=== PATIENT | female | born 1970 | race Caucasian/White ===

== ENCOUNTER 2022-09-26 13:16 | Emergency (ER) | payer BC, SELFPAY ==
[2022-09-26 13:25] VITALS: BP 135/82; PULSE 109; RESP 18; TEMP 36.8; O2SAT 97
--- NOTE | 2022-09-26 13:34 | XRR_ITS ---
PROCEDURE INFORMATION: Exam: XR Chest Exam date and time: 09/26/2022 1:46 PM Age: 51 years old Clinical indication: Cough TECHNIQUE: Imaging protocol: Radiologic exam of the chest. Views: 1 view. COMPARISON: CR XR chest 2V* [id number] 12/03/2016 2:31 PM FINDINGS: Lungs: Unremarkable. No consolidation. Pleural spaces: Unremarkable. No pleural effusion. No pneumothorax. Heart/Mediastinum: Unremarkable. No cardiomegaly. Bones/joints: Metallic hardware is seen in the cervical spine. This finding is stable XR/XR chest 1V portable [id number] IMPRESSION: 1. No acute findings. 2. Metallic hardware cervical spine
--- NOTE | 2022-09-26 13:46 | ECG_ITS ---
[facility] Test Date: 2022-09-26 Pat Name: Kailee Marcano Department: Room: Gender: Female Global President: : 1970 Requested By: Parish Bernal Order Number: [id number] Johnston MD: Hollis Mcelroy M.D. Measurements Intervals [place] Rate: 100 P: 60 UT: 158 QRS: 42 QRSD: 83 T: 59 QT: 353 QTc: 456 Interpretive Statements SINUS TACHYCARDIA LOW QRS VOLTAGE IN PRECORDIAL LEADS [QRS DEFLECTION < 1.0 mV IN CHEST LEADS] No previous ECG available for comparison Electronically Signed On 09-26-2022 19:43:43 BINDERY ASSISTANT by Hollis Mcelroy M.D. [id number]
--- NOTE | 2022-09-26 13:48 | W.ED.URI ---
HPI - URI/Sore Throat General: Chief Complaint: Fever Stated Complaint: Congestions, heaviness in chest Time Seen by Provider: 09/26/22 13:34 History of Present Illness: Patient is a 51-year-old female who comes to the ED with chest heaviness. Patient has been dealing with upper respiratory symptoms for approximately 1 month now. She has seen her PCP multiple times and was put on levofloxacin back in mid August. She did not improve and was then put on Augmentin back on the and has been taking that now for 5 days and has not gotten any relief. She feels some chest heaviness and chest discomfort for the past couple weeks comes and goes. She is also complaining of nasal drainage and congestion and a productive cough with thick yellow sputum. She has been around couple sick contacts 1 was a child with RSV and the other 1 was a child with influenza. Patient has a history of asthma and has been using her albuterol nebulizer breathing treatments as needed for the past month. Associated symptoms: Reports chest pain and nasal congestion; Deny abdominal pain, chills, diarrhea, fever(s), headache(s), nausea or vomiting Review of Systems Const: Reports: fatigue; Denies: fever(s) or chills Eyes: Denies: change in vision or eye discomfort ENMT: Reports: throat pain, nasal discharge and nasal congestion; Denies: odynophagia Card: Reports: chest pain; Denies: palpitations, edema, swelling of feet/ankles, dyspnea on exertion or orthopnea Resp: Reports: dyspnea and productive cough; Denies: non-productive cough GI: Denies: abdominal pain, nausea, vomiting, diarrhea, constipation or hematochezia : Denies: flank pain, dysuria or hematuria Musc: Denies: neck pain, back pain or extremity swelling Skin/Breast: Denies: rash or new lesions Neuro: Denies: headache(s), numbness in extremities or weakness in extremities PFSH ED PFSH: Medical History Asthma COVID-19 Social History Smoking and tobacco status: never smoked Alcohol intake: current Alcohol intake frequency: few times a month Lives independently: No Household members: spouse Housing: House Marital status: Number of children: 3 Number of grandchildren: 3 Highest education level completed: Associate Degree: Academic Program service: No Current occupational status: employed Current occupation: [employer] Current occupational exposures/hazards: Yes Pets and animals: No History of recent travel: No Sexually active: Yes Special iker needs: No Physical Exam Const: COMMON NORMALS: no acute distress, patient oriented x3 and alert GENERAL APPEARANCE: cooperative and comfortable HENMT: COMMON NORMALS: normocephalic HEAD & SCALP: normocephalic MOUTH: Normal oral and palatal mucosa present THROAT: posterior oropharynx normal and uvula midline Neck/C-Spine: COMMON NORMALS: supple GENERAL: Yes normal visual inspection Resp: COMMON NORMALS: normal respiratory effort, No retractions, No use of accessory muscles and clear to auscultation bilaterally AUSCULTATION: clear to auscultation bilaterally Cardio: COMMON NORMALS: regular rate, regular rhythm, S1 normal heart sound present, S2 normal heart sound present, No gallops present (Cardio), No clicks present (Cardio), No murmurs present (Cardio) and Peripheral pulses 2+ throughout RATE: regular rate RHYTHM: regular rhythm HEART SOUNDS: S1 normal heart sound present and S2 normal heart sound present PERIPHERAL PULSES: Peripheral pulses 2+ throughout GI: COMMON NORMALS: Normal to inspection, nondistended, normoactive bowel sounds present, Soft to palpation, non-tender and no masses PALPATION: Yes Soft to palpation : COMMON NORMALS: Yes no CVA tenderness BLADDER/KIDNEY EXAM: Yes no CVA tenderness Back/Pelvis: COMMON NORMALS: no CVA tenderness Extremity: COMMON NORMALS: normal to inspection Neuro: COMMON NORMALS: patient oriented x3 SENSORIUM/ORIENTATION: Yes alert GAIT: Yes Normal gait present Skin: GENERAL SKIN EXAM: dry skin Course Vital Signs: Vital signs: Vital Signs Temperature 98.2 F 09/26/22 13:25 Pulse Rate 90 09/26/22 16:10 Respiratory Rate 18 09/26/22 16:10 Blood Pressure 135/82 09/26/22 13:25 Pulse Oximetry 97 09/26/22 16:10 Oxygen Delivery Me thod 09/26/22 13:57 MDM - URI/Sore Throat Medical Decision Making Patient is a 51-year-old female who comes to the ED with chest heaviness. Patient has been dealing with upper respiratory symptoms for approximately 1 month now. She has seen her PCP multiple times and was put on levofloxacin back in mid August. She did not improve and was then put on Augmentin back on the and has been taking that now for 5 days and has not gotten any relief. She feels some chest heaviness and chest discomfort for the past couple weeks comes and goes. She is also complaining of nasal drainage and congestion and a productive cough with thick yellow sputum. She has been around couple sick contacts 1 was a child with RSV and the other 1 was a child with influenza. Labs were unremarkable. Troponin negative. EKG showed no acute findings. Chest x-ray showed no acute findings. Patient was given a DuoNeb breathing treatment and Solu-Medrol here in the ED. She was diagnosed with bronchitis and discharged home with a prescription for prednisone and told to continue taking her Augmentin. Follow-up with PCP in the next week for reevaluation. Return to ED precautions given. Patient understood and agreed with plan. Lab Data I reviewed the patient's lab results. 09/26/22 13:57 09/26/22 13:57 Radiology Impressions Chest X-Ray 09/26/22 13:34 IMPRESSION: 1. No acute findings. 2. Metallic hardware cervical spine Laboratory Results WBC 5.9 10^3/uL (4.0-10.0) 09/26/22 13:57 RBC 4.85 10^6/uL (4.1-5.3) 09/26/22 13:57 Hgb 14.6 g/dL (11.5-15.3) 09/26/22 13:57 Hct 43.8 % (37.0-47.0) 09/26/22 13:57 MCV 90.3 fl (81-99) 09/26/22 13:57 MCH 30.1 pg (28.0-34.0) 09/26/22 13:57 MCHC 33.3 g/dL (30.0-36.0) 09/26/22 13:57 RDW 12.7 % (12.1-15.1) 09/26/22 13:57 Plt Count 232 10^3/cmm (130-400) 09/26/22 13:57 MPV 11.0 fL (7.4-10.4) H 09/26/22 13:57 Neut % (Auto) 53.7 % 09/26/22 13:57 Lymph % (Auto) 36.3 % 09/26/22 13:57 [place] % (Auto) 6.3 % 09/26/22 13:57 Eos % (Auto) 2.5 % 09/26/22 13:57 Baso % (Auto) 1.0 % 09/26/22 13:57 Neut # (Auto) 3.16 10^3/uL (1.8-7.7) 09/26/22 13:57 Lymph # (Auto) 2.1 10^3/uL (0.8-4.8) 09/26/22 13:57 [place] # (Auto) 0.4 10^3/uL (0.2-0.9) 09/26/22 13:57 Eos # (Auto) 0.2 10^3/uL (0.0-0.8) 09/26/22 13:57 Baso # (Auto) 0.1 10^3/uL (0.0-0.1) 09/26/22 13:57 Nucleated RBC % (auto) 0 % 09/26/22 13:57 Nucleated RBCs # 0.0 /100WBC 09/26/22 13:57 Sodium 137 mmol/L (136-145) 09/26/22 13:57 Potassium 3.7 mmol/L (3.5-5.1) 09/26/22 13:57 Chloride 106 mmol/L (98-107) 09/26/22 13:57 Carbon Dioxide 20 mmol/L (22-29) L 09/26/22 13:57 Anion Gap 14.7 (5-19) 09/26/22 13:57 BUN 20 mg/dL (6-20) 09/26/22 13:57 Creatinine 0.9 mg/dL (0.5-0.9) 09/26/22 13:57 GFR Calculation 66.0 mL/min (90-130) L 09/26/22 13:57 Glucose 145 mg/dL (65-115) H 09/26/22 13:57 Calculated Osmolality 289 mOsm/kg (285-295) 09/26/22 13:57 Calcium 9.1 mg/dL (8.5-10.5) 09/26/22 13:57 Total Bilirubin 0.4 mg/dL (0.15-1.2) 09/26/22 13:57 AST 19 U/L (0-32) 09/26/22 13:57 ALT 25 U/L (0-33) 09/26/22 13:57 Alkaline Phosphatase 114 U/L (35-105) H 09/26/22 13:57 Troponin T Baseline 6 ng/L (0-10) 09/26/22 13:57 Troponin T 120 Minute 6.00 ng/L (0-10) 09/26/22 15:26 Delta Troponin T 0 ABS# (0-10) 09/26/22 15:26 Total Protein 7.0 g/dL (6.6-8.7) 09/26/22 13:57 Albumin 4.2 g/dL (3.5-5.2) 09/26/22 13:57 Globulin 2.8 g/dL (1.3-4.6) 09/26/22 13:57 Influenza Type A Ag negative (Negative) 09/26/22 13:57 Influenza Type B Ag negative (Negative) 09/26/22 13:57 SARS-CoV-2 Ag (Rapid) Cancelled 09/26/22 Unknown Group A Strep Rapid Negative (Negative) 09/26/22 13:57 EKG Data EKG 1: I personally reviewed and interpreted this EKG as follows: Computer Generated Interpretation: [address] [address] Electrocardiograph Report Signed Patient: Kailee Marcano Unit #: [id number] : 1970 Age/Sex: 51 / F ADM Date: 09/26/22 Loc: ER Room/Bed: Attending Dr: Ordering Provider/Ordering MD: Parish Bernal Date of Service: 09/26/22 Procedure(s): ECG 12 lead EKG Accession Number(s): [id number] Report Number: [id number] ? [facility] ? Test Date:? ? 2022-09-26 Pat Name: ? ? Kailee Marcano ? Department: ? Patient ID: ? [id number] ? Room: ? Gender: ? ? ? Female ? Manager Relocation: ? :? 1970 ? Requested By: Parish Bernal Order Number: [id number]? Reading : ? Hollis Mcelroy M.D. ? Measurements Intervals? [place]? Rate: ? 100? P:? 60 FL: ? 158? QRS:? 42 QRSD: ? 83 ? T:? 59 QT: ? 353? QTc:? 456? Interpretive Statements SINUS TACHYCARDIA LOW QRS VOLTAGE IN PRECORDIAL LEADS? [QRS DEFLECTION < 1.0 mV IN CHEST LEADS] No previous ECG available for comparison Electronically Signed On 09-26-2022 19:43:43 COMPUTER EQUIPMENT INSTALLER by Hollis Mcelroy M.D. [id number] Dictated By: Hollis Mcelroy MD Signed By: Hollis Mcelroy MD Signed Date/Time: 09/26/221945 DD/ 1401 Discharge Plan Discharge Patient Disposition: Home Clinical Impression: Bronchitis Condition: Stable Prescriptions: New prednisone 20 mg tablet 20 mg PO BID 7 Days Qty: 14 0RF benzonatate 100 mg capsule 100 mg PO Q6H PRN (Reason: cough) Qty: 20 0RF No Action Zyrtec 10 mg capsule 10 mg PO DAILY fluticasone propionate 50 mcg/actuation spray,suspension 1 spray INTRANASAL DAILY Rx Instructions: administer into each nostril topiramate [Topamax] 50 mg tablet 50 mg PO DAILY diphenhydramine HCl [Benadryl] 25 mg capsule 25 mg PO TID PRN ibuprofen [IBU] 800 mg tablet 800 mg PO Q6H albuterol sulfate 90 mcg/actuation aerosol powdr breath activated 2 inh INHALATION Q6H PRN cyclobenzaprine 10 mg tablet 10 mg PO TID PRN (Reason: muscle spasm) Qty: 20 0RF duloxetine 20 mg capsule,delayed release(DR/EC) 20 mg PO BID eszopiclone [Lunesta] 1 mg tablet PO doxycycline hyclate 100 mg tablet 100 mg PO BID 7 Days Qty: 14 0RF methylprednisolone [Medrol (Bobo)] 4 mg tablets,dose pack See Rx Instructions PO PER PKG DIR Qty: 21 0RF Rx Instructions: PO PER PKG DIR Discharge Orders: Discharge ED (Routine); Ordered 09/26/22 Ordered By: Parish Bernal Referrals: Ade Lin FNP [Primary Care Provider] - Discharge Diet: Regular Discharge Activity: Increase activity as tolerated Patient Instructions: Bronchitis (Acute) - Adult Activity Restrictions/Additional Instructions: Follow-up with medical provider as directed in the next 5 to 7 days for reevaluation. Continue taking Augmentin prescription until complete. Take medications as prescribed. Return to the ER or your medical provider if condition worsens. Please read and understand discharge instructions. Thank you for choosing [facility] for your healthcare needs today. Please realize this is an emergency room and that we are providing you with a medical screening exam and this may not be complete and all inclusive of all the testing and or work up that you may need to determine your ailment or severity of your illness. It is very important that you follow up as instructed or that you return to the Emergency Department should you have concerns or if your condition changes or worsens in any way. Coding Level of Care Code ED Stone Paver for Sona Fwd Exam Comprehensive
[2022-09-26] MEDS: ipratropium-albuterol 3 mL Neb 6 ML INHALATION (13:56)
[2022-09-26 13:57] VITALS: PULSE 98; RESP 18; O2SAT 96
[2022-09-26 14:15] LABS: Basophils # 0.1 10^3/uL (0.0-0.1); Eosinophils # 0.2 10^3/uL (0.0-0.8); Eosinophils % 2.5 %; Hematocrit 43.8 % (37.0-47.0); Hemoglobin 14.6 g/dL (11.5-15.3); Lymphocytes # 2.1 10^3/uL (0.8-4.8); Lymphocytes % 36.3 %; Mean Corpuscular HGB Conc 33.3 g/dL (30.0-36.0); Mean Corpuscular Hemoglobin 30.1 pg (28.0-34.0); Mean Corpuscular Volume 90.3 fl (81-99); Monocytes # 0.4 10^3/uL (0.2-0.9); Monocytes % 6.3 %; Neutrophils # 3.16 10^3/uL (1.8-7.7); Neutrophils % 53.7 %; Nucleated Red Blood Cells % 0 %; Platelet Count 232 10^3/cmm (130-400); Red Blood Count 4.85 10^6/uL (4.1-5.3); Red Cell Distribution Width 12.7 % (12.1-15.1); White Blood Count 5.9 10^3/uL (4.0-10.0)
[2022-09-26 14:27] LABS: Rapid Strep A Test Negative (Negative)
[2022-09-26 14:30] LABS: Alanine Aminotransferase 25 U/L (0-33); Albumin Level 4.2 g/dL (3.5-5.2); Alkaline Phosphatase 114 U/L (35-105); Anion Gap 14.7 (5-19); Aspartate Amino Transferase 19 U/L (0-32); Blood Urea Nitrogen 20 mg/dL (6-20); Calcium 9.1 mg/dL (8.5-10.5); Carbon Dioxide 20 mmol/L (22-29); Chloride 106 mmol/L (98-107); Globulin 2.8 g/dL (1.3-4.6); Glucose 145 mg/dL (65-115); Osmolality Calculated 289 mOsm/kg (285-295); Potassium 3.7 mmol/L (3.5-5.1); Sodium 137 mmol/L (136-145); Total Bilirubin 0.4 mg/dL (0.15-1.2)
[2022-09-26 15:34] LABS: Troponin(5th) Baseline 6 ng/L (0-10)
[2022-09-26 16:08] LABS: Influenza A by IFA negative (Negative); Influenza B by IFA negative (Negative)
[2022-09-26 16:10] VITALS: PULSE 90; RESP 18; O2SAT 97
[2022-09-26 16:27] LABS: Troponin 5 2HR Delta 0 ABS# (0-10)
== END 2022-09-26 16:10 | disposition home or self-care (01) ==
PROVIDERS: Emergency Provider Physician Assistant; PCP Registered Nurse
DX: J40 Bronchitis, not specified as acute or chronic (principal)
CPT/HCPCS: 36415; 71045; 80053; 84484; 85025; 87081; 87804; 87880; 93005; 94640; 96374; 99285; J2930

== ENCOUNTER → 2023-10-24 16:53 | Outpatient (BNVA) | payer BC, SELFPAY | PROVIDERS: PCP Registered Nurse; Visit Provider Nurse Practitioner | DX: R05.9 Cough, unspecified (principal); R09.89 Other specified symptoms and signs involving the circulatory and respiratory systems | CPT/HCPCS: 87400 ==

== ENCOUNTER → 2024-07-02 14:31 | Outpatient (BNVA) | payer BC, SELFPAY | PROVIDERS: PCP Registered Nurse; Visit Provider Podiatrist Foot & Ankle Surgery | DX: M79.671 Pain in right foot (principal); M79.672 Pain in left foot; Q66.71 Congenital pes cavus, right foot; Q66.72 Congenital pes cavus, left foot | CPT/HCPCS: 73630 ==

== ENCOUNTER 2024-11-04 15:17 | Emergency (ER) | payer BC, SELFPAY ==
[2024-11-04 15:52] VITALS: BP 131/86; PULSE 115; RESP 16; TEMP 36.8; O2SAT 97
--- NOTE | 2024-11-04 15:58 | ECG_ITS ---
[facility] Test Date: 2024-11-04 Pat Name: Kailee Marcano Department: Room: Gender: Female Senior Network Architect: : 1970 Requested By: Cleo Alvarez Order Number: [id number] Preston MD: Harsha Pastor M.D. Measurements Intervals [place] Rate: 109 P: 41 GA: 136 QRS: 24 QRSD: 80 T: 67 QT: 330 QTc: 444 Interpretive Statements SINUS TACHYCARDIA NONSPECIFIC T-WAVE ABNORMALITY ABNORMAL RHYTHM ECG Compared to ECG 09/26/2022 14:01:23 T-wave abnormality now present Electronically Signed On 11-06-2024 23:51:59 SENIOR QUANTITY SURVEYOR by Harsha Pastor M.D. [id number]
--- NOTE | 2024-11-04 16:43 | XRR_ITS ---
PROCEDURE INFORMATION: Exam: XR Chest Exam date and time: 11/04/2024 5:05 PM Age: 53 years old Clinical indication: Other: Pneumonia TECHNIQUE: Imaging protocol: Radiologic exam of the chest. Views: 1 view. COMPARISON: CR XR chest 1V portable [id number] 09/26/2022 1:46 PM FINDINGS: Lungs: Unremarkable. No consolidation. Pleural spaces: Unremarkable. No pleural effusion. No pneumothorax. Heart/Mediastinum: Unremarkable. No cardiomegaly. Bones/joints: Unremarkable. Similar partially imaged ACDF hardware. XR/XR chest 1V portable [id number] IMPRESSION: No acute findings.
--- NOTE | 2024-11-04 17:00 | W.ED.URI ---
HPI - URI/Sore Throat General: Chief Complaint: Upper Respiratory Infection Stated Complaint: congestion Time Seen by Provider: 11/04/24 16:25 Source: patient Mode of arrival: ambulatory Limitations: no limitations History of Present Illness: 53yo female presents with upper respiratory infection symptoms that have been ongoing for greater than a month. Patient reports that she is currently taking prednisone and using her nebulizer twice a day, but is not having any improvements. She reports that she does have a history of asthma and typically has difficulty when she does get respiratory infections. States she has needed Levaquin with her respiratory illnesses. Patient also reports that she has had pressure in her sinuses and in her ears. States that doxycycline and azithromycin do not work for her. Patient denies difficulty breathing, shortness of breath, vomiting, diarrhea, any other concern at this time. Associated symptoms: Reports nasal congestion and sinus pain; Deny abdominal pain, chills, chest pain, fever(s) or vomiting Related Data Home Medications Medication Instructions Recorded Confirmed albuterol sulfate 90 mcg/actuation 2 inh inhalation Q6H PRN 07/19/20 07/02/24 breath activated powder inhaler diphenhydramine HCl 25 mg capsule 25 mg PO TID PRN 07/19/20 07/02/24 (Benadryl) fluticasone propionate 50 1 spray intranasal DAILY 07/19/20 07/02/24 mcg/actuation nasal spray,suspension ibuprofen 800 mg tablet (IBU) 800 mg PO Q6H 07/19/20 07/02/24 topiramate 50 mg tablet (Topamax) 50 mg PO DAILY 07/19/20 07/02/24 duloxetine 20 mg capsule,delayed 20 mg PO BID 05/02/22 07/02/24 release eszopiclone 1 mg tablet (Lunesta) mg PO 05/02/22 07/02/24 levocetirizine 5 mg tablet 5 mg PO DAILY 10/18/23 07/02/24 Previous Rx's Medication Instructions Recorded cyclobenzaprine 10 mg tablet 10 mg PO TID PRN muscle spasm #20 07/27/21 tabs amoxicillin 875 mg-potassium 1 tab PO BID #14 tabs 11/04/24 clavulanate 125 mg tablet doxycycline hyclate 100 mg capsule 100 mg PO BID 14 days #28 caps 11/04/24 Allergies Allergy/AdvReac Type Severity Reaction Status Date / Time No Known Allergies Allergy Verified 11/04/24 15:55 Review of Systems Const: Denies: fever(s) or chills ENMT: Reports: nasal congestion and sinus pain Card: Reports: palpitations; Denies: chest pain Resp: Reports: non-productive cough and wheezing GI: Denies: abdominal pain or vomiting PFSH ED PFSH: Medical History COVID-19 Asthma Social History Smoking and tobacco/nicotine status: unknown if used tobacco/nicotine Alcohol intake: current Alcohol intake frequency: few times a month Substance/Drug Use: never Lives independently: No Household members: spouse Housing: House Marital status: Number of children: 3 Number of grandchildren: 3 Highest education level completed: Associate Degree: Academic Program service: No Current occupational status: employed Current occupation: [employer] Current occupational exposures/hazards: Yes Pets and animals: No Sexually active: Yes Special iker needs: No Physical Exam Const: COMMON NORMALS: no acute distress, patient oriented x3, healthy appearing and alert GENERAL APPEARANCE: cooperative OTHER: Patient is sitting upright on the stretcher no acute distress. She is able to give history with no difficulty. She is interactive with exam appropriately. No family is at bedside HENMT: COMMON NORMALS: normocephalic and TM's normal bilaterally HEAD & SCALP: normocephalic TYMPANIC MEMBRANE: TM's normal bilaterally MOUTH: lip normal Eye: GENERAL EYE: appearance normal, both eyes and all related structures Neck/C-Spine: COMMON NORMALS: full ROM Chest: CHEST: Yes Symmetrical chest wall rise Resp: COMMON NORMALS: normal respiratory effort and clear to auscultation bilaterally EFFORT & INSPECTION: Yes able to speak in complete sentences AUSCULTATION: clear to auscultation bilaterally Cardio: COMMON NORMALS: regular rate and regular rhythm RATE: regular rate RHYTHM: regular rhythm Extremity: COMMON NORMALS: full ROM Neuro: COMMON NORMALS: patient oriented x3 SENSORIUM/ORIENTATION: Yes alert Psych: COMMON NORMALS: cooperative Course Vital Signs: Vital signs: Vital Signs Temperature 98.2 F 11/04/24 15:52 Pulse Rate 115 H 01/12/25 15:52 Respiratory Rate 16 11/04/24 15:52 Blood Pressure 131/86 11/04/24 15:52 Pulse Oximetry 97 11/04/24 15:52 MDM - URI/Sore Throat Medical Decision Making 53yo female here with upper respiratory infection symptoms that have been ongoing for greater than a month. Patient reports that she is currently taking prednisone and using her nebulizer twice a day, but is not having any improvements. She reports that she does have a history of asthma and typically has difficulty when she does get respiratory infections. States she has needed Levaquin with her respiratory illnesses. Patient also reports that she has had pressure in her sinuses and in her ears. States that doxycycline and azithromycin do not work for her. Patient denies difficulty breathing, shortness of breath, vomiting, diarrhea, any other concern at this time. Patient is nontoxic in appearance. Tachycardia noted on triage vitals, repeat heart rate noted to be 104. EKG does show sinus tachycardia with a vent rate of 109. Independent review of chest x-ray shows no obvious infiltrate, awaiting radiology review. Discussed these findings with patient. Given that she has had her symptoms for greater than 1 month and is continuing to worsen, will proceed with antibiotic therapy. Augmentin and doxycycline prescribed, first dose provided while in the emergency department. Recommend patient continue with her prednisone taper as well as her albuterol and Spiriva. Advised to avoid respiratory irritants. Recommend she follow-up with primary care, call in the next couple of days with an update of symptoms and to discuss her recheck. Recommend returning to emergency department if any rapid worsening symptoms, difficulty breathing, shortness of breath, chest pain, and as needed. Patient states understanding and has no further questions or concerns at this time. Differential Diagnosis Likely upper respiratory infection, sinusitis, viral infection and bronchitis Medical Records I reviewed the patient's medical records. Lab Data Radiology Impressions Chest X-Ray 11/04/24 16:43 IMPRESSION: No acute findings. XR interpretation done by ED provider, pending radiology final review Discharge Plan Discharge Patient Disposition: Home Clinical Impression: Acute respiratory infection Asthma Qualifiers: Asthma severity: unspecified severity Asthma persistence: unspecified Asthma complication type: unspecified Qualified Code(s): J45.909 - Unspecified asthma, uncomplicated Condition: Stable Prescriptions: New amoxicillin-pot clavulanate 875-125 mg tablet 1 tab PO BID Qty: 14 0RF doxycycline hyclate 100 mg capsule 100 mg PO BID 14 Days Qty: 28 0RF Discontinued amoxicillin-pot clavulanate 875-125 mg tablet 1 tab PO BID 10 Days Qty: 20 0RF levofloxacin 750 mg tablet 750 mg PO DAILY 7 Days Qty: 7 0RF promethazine-DM 6.25-15 mg/5 mL syrup 5 ml PO Q4H PRN (Reason: cough) Qty: 118 0RF Rx Instructions: Do not exceed more than 30ml/24hour period (6 doses) No Action fluticasone propionate 50 mcg/actuation spray,suspension 1 spray INTRANASAL DAILY Rx Instructions: administer into each nostril topiramate [Topamax] 50 mg tablet 50 mg PO DAILY diphenhydramine HCl [Benadryl] 25 mg capsule 25 mg PO TID PRN ibuprofen [IBU] 800 mg tablet 800 mg PO Q6H albuterol sulfate 90 mcg/actuation aerosol powdr breath activated 2 inh INHALATION Q6H PRN cyclobenzaprine 10 mg tablet 10 mg PO TID PRN (Reason: muscle spasm) Qty: 20 0RF levocetirizine 5 mg tablet 5 mg PO DAILY duloxetine 20 mg capsule,delayed release(DR/EC) 20 mg PO BID eszopiclone [Lunesta] 1 mg tablet PO Discharge Orders: Discharge ED (Routine); Ordered 11/04/24 Ordered By: Fady Son Referrals: Ade Lin FNP [Primary Care Provider] - Discharge Diet: Usual diet Discharge Activity: Increase activity as tolerated Patient Instructions: Pneumonia (ED) Activity Restrictions/Additional Instructions: Augmentin and doxycycline have been sent to your pharmacy to begin treatment of your respiratory infection Continue with your home steroids, inhalers, and nebulizer Try to avoid any known respiratory irritants Follow-up with primary care, call in 2 to 3 days with an update of symptoms and to discuss to recheck Return to the emergency department if any rapid worsening symptoms, difficulty breathing, persistent shortness of breath, chest pain, and as needed. Stand Alone Forms: Work/School Release Coding Level of Care Code ED Paint Line Production Supervisor for Sona Albarado
[2024-11-04] MEDS: doxycycline 100 mg Tablet PO (19:04)
[2024-11-04] MEDS: amoxicillin-clav 875-125 mg Tablet 1 TAB PO (19:04)
[2024-11-04 19:05] VITALS: BP 123/97; PULSE 98; RESP 20; O2SAT 91
[2024-11-04 19:12] VITALS: BP 123/97; PULSE 96; O2SAT 92
== END 2024-11-04 19:13 | disposition home or self-care (01) ==
PROVIDERS: Emergency Provider Nurse Practitioner; PCP Registered Nurse
DX: J06.9 Acute upper respiratory infection, unspecified (principal); J45.909 Unspecified asthma, uncomplicated
CPT/HCPCS: 71045; 93005; 99284

== ENCOUNTER 2025-04-16 12:01 | Emergency (ER) | payer OTHER, SELFPAY ==
[2025-04-16 12:14] VITALS: BP 135/86; PULSE 98; RESP 18; TEMP 36.7; O2SAT 98
--- OUTSIDE RECORDS SUMMARY | 2025-04-16 12:21 | XMS_ITS | Encounter Summary ---
Author Organization [facility] Address [address] [place] [address] Care Team Providers Care Roll Threader Operator Name Role Phone Deion Cuevas Primary Care Provider Encounter Details Date Type Department Care Team (Late st Contact Info) Description 04/13/2025 Orders Only [facility] [place] [address] [address] Ade Lin, [facility] [address] [phone] Folliculitis (Primary Dx) Social History Tobacco Use Types Packs/Day Years Used Date Smoking Tobacco: Never Smokeless Tobacco: Never Alcohol Use Standard Drinks/Week Comments Yes 0 (1 standard drink = 0.6 oz pur e alcohol) Feeling Safe Answer Date Recorded Are you in a relationship wi th someone who hurts you emotionally and/or physically? 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
--- OUTSIDE RECORDS SUMMARY | 2025-04-16 12:21 | XMS_ITS | Encounter Summary ---
Author Organization [facility] Address [address] [place] [address] Care Team Providers Care Quality Improvement Specialist Name Role Phone Apoorva Garcia DO Primary Care Provider +1- [phone] Encounter Details Date Type Department Care Team (Latest Contact Info) Description 06/29/2005 Outpatient Historical [facility] Javier Orlando MD [address] [address] CERVICALGIA (Primary Dx) Social History Tobacco Use Types Packs/Day Years Used Date Smoking Tobacco: Never Assessed Comments Unknown Sex and Gender Information Value Date Recorded Sex Assigned at Not on file 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
--- OUTSIDE RECORDS SUMMARY | 2025-04-16 12:21 | XMS_ITS | Encounter Summary ---
Author Organization [facility] Address [address] [place] [address] Care Team Providers Care It Coordinator Name Role Phone Apoorva Garcia DO Primary Care Provider +1- [phone] Encounter Details Date Type Department Care Team (Latest Contact Info) Description 06/29/2005 Outpatient Historical [facility] [address] [place] [address] Javier Orlando MD [address] [address] SPONDYLOSIS NOS W MYELOP (Primary Dx) Social History Tobacco Use Types Packs/Day Years Used Date Smoking Tobacco: Never Assessed Comments Unknown Sex and Gender Information Value Date Recorded Sex Assigned at Not on file 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
--- OUTSIDE RECORDS SUMMARY | 2025-04-16 12:21 | XMS_ITS | Encounter Summary ---
Author Organization [facility] Address [address] [place] [address] Care Team Providers Care Exchange Architect Name Role Phone Apoorva Garcia DO Primary Care Provider +1- [phone] Encounter Details Date Type Department Care Team (Latest Contact Info) Description 01/03/2002 Outpatient Historical [facility] Rachid Ramires MD [address] [place] [address] NONINFEC GASTROENTERIT NEC (Primary Dx); CHEST PAIN NEC; ALLERGIC RHINITIS NEC; ESOPHAGEAL REFLUX Social History Tobacco Use Types Packs/Day Years Used Date Smoking Tobacco: Never Assessed Comments Unknown Sex and Gender Information Value Date Recorded Sex Assigned at Not on file Legal Sex Female 5:10 AM SECOND MATE Gender Identity Not on file Sexual Orientation Not on file documented as of this encounter Plan of Treatment Not on file documented as of this encounter Visit Diagnoses Diagnosis Other and unspecified noninfectious gastroenteritis and colitis(558.9)- Primary Other and unspecified noninfectious gastroenteritis and colitis Other chest pain Allergic rhinitis due to other allergen Esophageal reflux documented in this encounter Care Teams Exchange Architect Relationship Specialty Start Date End Date Apoorva Garcia DO [address] [place] [phone] PCP - General Family Practice 02/14/18 documented as of this encounter
--- OUTSIDE RECORDS SUMMARY | 2025-04-16 12:21 | XMS_ITS | Encounter Summary ---
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
--- OUTSIDE RECORDS SUMMARY | 2025-04-16 12:21 | XMS_ITS | Encounter Summary ---
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
--- OUTSIDE RECORDS SUMMARY | 2025-04-16 12:21 | XMS_ITS | Encounter Summary ---
Author Organization [facility] Address [address] [place] [address] Care Team Providers Care Shirt Folder Name Role Phone Apoorva Garcia DO Primary Care Provider +1- [phone] Encounter Details Date Type Department Care Team (Latest Contact Info) Description 07/27/2005 Outpatient Historical [facility] Pain Management Procedures [address] 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
--- OUTSIDE RECORDS SUMMARY | 2025-04-16 12:21 | XMS_ITS | Encounter Summary ---
Author Organization [facility] Address [address] [place] [address] Care Team Providers Care Journeyman Plumber Name Role Phone Apoorva Garcia DO Primary Care Provider +1- [phone] Encounter Details Date Type Department Care Team (Latest Contact Info) Description 10/20/1999 Outpatient Historical [facility] Camden Izquierdo NO ADDRESS ON FILE Nonspecific abnormal findings on radiological and other examination of other site of body (Primary Dx); Calculus of kidney Social History Tobacco Use Types Packs/Day Years Used Date Smoking Tobacco: Never Assessed Comments Unknown Sex and Gender Information Value Date Recorded Sex Assigned at Not on file 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
--- OUTSIDE RECORDS SUMMARY | 2025-04-16 12:21 | XMS_ITS | Encounter Summary ---
Author Organization [facility] Address [address] [place] [address] Care Team Providers Care Export Documents Clerk Name Role Phone Deion Cuevas Primary Care Provider [phone] Encounter Details Date Type Department Care Team (Late st Contact Info) Description 03/01/2025 Results Follow-Up [facility] [place] [address] [place] [address] Ade Lin, [facility] [address] [address] CBC WITH DIFFERENTIAL, HEMOGLOBIN A1C, LIPID PANEL Social History Tobacco Use Types Packs/Day Years [...] on file Legal Sex Female 5:54 AM PRINT DECORATOR Gender Identity Not on file Sexual Orientation Not on file documented as of this encounter Plan of Treatment Not on file documented as of this encounter Visit Diagnoses Not on filedocumented in this encounter Care Teams Export Documents Clerk Relationship Specialty Start Date End Date Deion Cuevas DO [address] [place] [address] PCP - General Family Practice 03/22/23 documented as of this encounter
--- OUTSIDE RECORDS SUMMARY | 2025-04-16 12:21 | XMS_ITS | Encounter Summary ---
Author Organization [facility] Address [address] [place] [address] Care Team Providers Care Marine Operations Coordinator Name Role Phone Apoorva Garcia DO Primary Care Provider +1- [phone] Encounter Details Date Type Department Care Team (Latest Contact Info) Description 08/03/2005 Outpatient Historical [facility] [address] [place] [address] 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 Gender Identity Not on file Sexual Orientation Not on file documented as of this encounter Plan of Treatment Not on file documented as of this encounter Procedures Procedure Name Priority Date/Time Associated Diagnosis Comments CBC WITHOUT DIFFERENTIAL Routine 08/03/2005 3:25 PM CDT BASIC METABOLIC PANEL Routine 08/03/2005 3:25 PM CDT documented in this encounter Results * (ABNORMAL) CBC WITHOUT DIFFERENTIAL (08/03/2005 3:25 PM CDT) WBC 10.9 4.5 - 11.0 K/ul INTERFACE SYSTEM RBC 4.90 4.20 - 5.40 Mil/ul INTERFACE SYSTEM HEMOGLOBIN 14.5 12.0 - 16.0 g/dL INTERFACE SYSTEM HEMATOCRIT 42.4 36.0 - 46.0 % INTERFACE SYSTEM MCV 86.5 84.0 - 103.0 Fl INTERFACE SYSTEM MCH 29.6 27.0 - 34.0 pg INTERFACE SYSTEM MCHC 34.2 30.0 - 35.0 g/dL INTERFACE SYSTEM RDW 13.4 11.0 - 14.5 % INTERFACE SYSTEM PLATELETS 307 140 - 440 K/ul INTERFACE SYSTEM MPV 10.8 8.9 - 12.8 Fl INTERFACE SYSTEM NEUTROPHILS 56.0 42.2 - 75.2 % INTERFACE SYSTEM LYMPHOCYTES 34.8 24.0 - 44.0 % INTERFACE SYSTEM MONOCYTES 8.0 2.0 - 10.0 % INTERFACE SYSTEM EOSINOPHILS 0.8 0.0 - 7.0 % INTERFACE SYSTEM BASOPHILS 0.4 0.0 - 1.0 % INTERFACE SYSTEM NEUTROPHIL ABSOLUTE 6.1 2.0 - 8.0 K/uL INTERFACE SYSTEM LYMPHOCYTE ABSOLUTE 3.8 1.2 - 4.0 K/ul INTERFACE SYSTEM MONOCYTE ABSOLUTE 0.9(H) 0.1 - 0.6 K/ul INTERFACE SYSTEM EOSINOPHIL ABSOLUTE 0.1 0.0 - 0.7 K/ul INTERFACE SYSTEM BASOPHILS ABSOLUTE 0.0 0.0 - 0.2 K/ul INTERFACE SYSTEM 08/03/2005 3:25 PM CDT us Javier Orlando MD HEMATOLOGY ORDERABLES Final Re sult INTERFACE SYSTEM Refer to clinic/hospital department * BASIC METABOLIC PANEL (08/03/2005 3:25 PM CDT) GLUCOSE 72 70 - 110 mg/dL INTERFACE SYSTEM BUN 12 7 - 17 mg/dL INTERFACE SYSTEM CREATININE 0.8 0.7 - 1.2 mg/dL INTERFACE SYSTEM SODIUM 140 136 - 145 mEq/L INTERFACE SYSTEM POTASSIUM 3.6 3.5 - 5.0 mEq/L INTERFACE SYSTEM CHLORIDE 106 95 - 110 mEq/L INTERFACE SYSTEM CO2 26 22 - 32 mmol/l INTERFACE SYSTEM ANION GAP 12 9 - 20 mEq/L INTERFACE SYSTEM OSMOLALITY, CALCULATED 285 275 - 295 mOsm/Kg INTERFACE SYSTEM CALCIUM 10.0 8.4 - 10.5 mg/dL INTERFACE SYSTEM 08/03/2005 3:25 PM CDT us Javier Orlando MD CHEMISTRY ORDERABLES Final Res ult INTERFACE SYSTEM Refer to clinic/hospital department documented in this encounter Visit Diagnoses Diagnosis Other specified pre-operative examination- Primary documented in this encounter Care Teams Marine Operations Coordinator Relationship Specialty Start Date End Date Apoorva Garcia DO [address] [place] [address] PCP - General Family Practice 02/14/18 documented as of this encounter
--- OUTSIDE RECORDS SUMMARY | 2025-04-16 12:21 | XMS_ITS | Encounter Summary ---
Author Organization [facility] Address [address] [place] [address] Care Team Providers Care Customer Data Technician Name Role Phone Apoorva Garcia DO Primary Care Provider [phone]- [phone] Encounter Details Date Type Department Care Team (Latest Contact Info) Description 12/23/1999 Outpatient Historical HIS [facility] Camden Izquierdo NO ADDRESS ON FILE Urinary calculus, unspecified (Primary Dx) Social History Tobacco Use Types Packs/Day Years Used Date Smoking Tobacco: Never Assessed Comments Unknown Sex and Gender Information Value Date Recorded Sex Assigned at Not on file 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
--- OUTSIDE RECORDS SUMMARY | 2025-04-16 12:21 | XMS_ITS | Encounter Summary ---
Author Organization [facility] Address [address] [place] [address] Care Team Providers Care Glove Machine Operator Name Role Phone Apoorva Garcia DO Primary Care Provider +1- [phone] Encounter Details Date Type Department Care Team (Latest Contact Info) Description 01/28/2000 Outpatient Historical [facility] Khalif Ferreira MD [address] [place] [address] Acute sinusitis, unspecified (Primary Dx); Unspecified sinusitis (chronic); Depressive disorder, not elsewhere classified; Benign silvia skin trunk Social History Tobacco Use Types Packs/Day Years Used Date Smoking Tobacco: Never Assessed Comments Unknown Sex and Gender Information Value Date Recorded Sex Assigned at Not on file Legal Sex Female 5:10 AM RHEUMATOLOGY NURSE Gender Identity Not on file Sexual Orientation Not on file documented as of this encounter Plan of Treatment Not on file documented as of this encounter Visit Diagnoses Diagnosis Acute sinusitis, unspecified- Primary Unspecified sinusitis (chronic) Depressive disorder, not elsewhere classified Benign silvia skin trunk Benign neoplasm of skin of trunk, except scrotum documented in this encounter Care Teams Glove Machine Operator Relationship Specialty Start Date End Date Apoorva Garcia DO [address] [place] [address] PCP - General Family Practice 02/14/18 documented as of this encounter
--- OUTSIDE RECORDS SUMMARY | 2025-04-16 12:21 | XMS_ITS | Encounter Summary ---
Author Organization [facility] Address [address] [place] [address] Care Team Providers Care Office Technologist Name Role Phone Apoorva Garcia DO Primary Care Provider +1- [phone] Encounter Details Date Type Department Care Team (Latest Contact Info) Description 08/14/2001 Outpatient Historical [facility] Rachid Ramires MD [address] [place], [place] [id number] Urinary tract infection, site not specified (Primary Dx); Migraine, unspecified, without mention of intractable migraine without mention of status migrainosus; Other malaise and fatigue; Unspecified disorder of skin and subcutaneous tissue Social History Tobacco Use Types Packs/Day Years Used Date Smoking Tobacco: Never Assessed Comments Unknown Sex and Gender Information Value Date Recorded Sex Assigned at Not on file 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 Gender Identity Not on file Sexual Orientation Not on file documented as of this encounter Plan of Treatment Not on file documented as of this encounter Visit Diagnoses Diagnosis Urinary tract infection, site not specified- Primary Migraine, unspecified, without mention of intractable migraine without mention of status migrainosus Other malaise and fatigue Unspecified disorder of skin and subcutaneous tissue documented in this encounter Care Teams Office Technologist Relationship Specialty Start Date End Date Apoorva Garcia DO [address] [place] [address] PCP - General Family Practice 02/14/18 documented as of this encounter
--- OUTSIDE RECORDS SUMMARY | 2025-04-16 12:21 | XMS_ITS | Encounter Summary ---
Author Organization [facility] Address [address] [place] [address] Care Team Providers Care Poultry Pathologist Name Role Phone Apoorva Garcia DO Primary Care Provider +1- [phone] Encounter Details Date Type Department Care Team (Latest Contact Info) Description 06/13/2000 Outpatient Historical [facility] Khalif Ferreira MD [address] [place] [address] Urinary tract infection, site not specified (Primary Dx); Bronchitis, not specified as acute or chronic Social History Tobacco Use Types Packs/Day Years Used Date Smoking Tobacco: Never Assessed Comments Unknown Sex and Gender Information Value Date Recorded Sex Assigned at Not on file Legal Sex Female 5:10 AM FINAL 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
--- OUTSIDE RECORDS SUMMARY | 2025-04-16 12:21 | XMS_ITS | Encounter Summary ---
Author Organization [facility] Address [address] [place] [address] Care Team Providers Care Stem Crusher Name Role Phone Apoorva Garcia DO Primary Care Provider +1- [phone] Encounter Details Date Type Department Care Team (Latest Contact Info) Description 07/27/2005 Outpatient Historical [facility] [address] [place] [address] Dmitri Perla BRACHIAL NEURITIS NOS (Primary Dx) Social History Tobacco Use Types Packs/Day Years Used Date Smoking Tobacco: Never Assessed Comments Unknown Sex and Gender Information Value Date Recorded Sex Assigned at Not on file 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
--- OUTSIDE RECORDS SUMMARY | 2025-04-16 12:21 | XMS_ITS | Encounter Summary ---
Author Organization [facility] Address [address] [place] [address] Care Team Providers Care Mold Sheet Cleaner Name Role Phone Apoorva Garcia DO Primary Care Provider +1- [phone] Encounter Details Date Type Department Care Team (Latest Contact Info) Description 07/13/2005 Outpatient Historical [facility] Pain Management Procedures [address] 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
--- OUTSIDE RECORDS SUMMARY | 2025-04-16 12:21 | XMS_ITS | Encounter Summary ---
Author Organization [facility] Address [address] [place] [address] Care Team Providers Care Speech And Hearing Director Name Role Phone Apoorva Garcia DO Primary Care Provider [phone] Encounter Details Date Type Department Care Team (Latest Contact Info) Description 07/01/2005 Outpatient Historical [facility] Neurosurgery[address] [place] [address] Javier Orlando MD [address] [place] [address] CERV DISC DIS W MYELOPAT (Primary Dx) Social History Tobacco Use Types Packs/Day Years Used Date Smoking Tobacco: Never Assessed Comments Unknown Sex and Gender Information Value Date Recorded Sex Assigned at Not on file Legal Sex Female 5:10 AM HR GENERALIST Gender Identity Not on file Sexual Orientation Not on file documented as of this encounter Plan of Treatment Not on file documented as of this encounter Visit Diagnoses Diagnosis Intervertebral cervical disc disorder with myelopathy, cervical region- Primary documented in this encounter Care Teams Speech And Hearing Director Relationship Specialty Start Date End Date Apoorva Garcia DO [address] [place] [address] PCP - General Family Practice 02/14/18 documented as of this encounter
--- OUTSIDE RECORDS SUMMARY | 2025-04-16 12:21 | XMS_ITS | Encounter Summary ---
Author Organization [facility] Address 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
--- OUTSIDE RECORDS SUMMARY | 2025-04-16 12:21 | XMS_ITS | Encounter Summary ---
Author Organization [facility] Address [address] [place] [address] Care Team Providers Care Packaging Line Operator Name Role Phone Apoorva Garcia DO Primary Care Provider [phone] Encounter Details Date Type Department Care Team (Latest Contact Info) Description 01/12/2000 Outpatient Historical [facility] Khalif Ferreira MD [address] [place] [address] Urinary tract infection, site not specified (Primary Dx); Urinary calculus, unspecified; Anemia, unspecified Social History Tobacco Use Types Packs/Day Years Used Date Smoking Tobacco: Never Assessed Comments Unknown Sex and Gender Information Value Date Recorded Sex Assigned at Not on file 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
--- OUTSIDE RECORDS SUMMARY | 2025-04-16 12:21 | XMS_ITS | Encounter Summary ---
Author Organization [facility] Address [address] [place] [address] Care Team Providers Care Senior Director Creative Services Name Role Phone Apoorva Garcia DO Primary Care Provider [phone]- [phone] Encounter Details Date Type Department Care Team (Latest Contact Info) Description 10/05/1999 Outpatient Historical [facility] Khalif Ferreira MD [address] [place] [address] Streptococcal sore throat (Primary Dx); Acute sinusitis, unspecified Social History Tobacco Use Types Packs/Day Years Used Date Smoking Tobacco: Never Assessed Comments Unknown Sex and Gender Information Value Date Recorded Sex Assigned at Not on file 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
--- OUTSIDE RECORDS SUMMARY | 2025-04-16 12:21 | XMS_ITS | Encounter Summary ---
Author Organization [facility] Address [address] 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
--- OUTSIDE RECORDS SUMMARY | 2025-04-16 12:21 | XMS_ITS | Encounter Summary ---
Author Organization [facility] Address [address] [place] [address] Care Team Providers Care Cephalometric Technician Name Role Phone Apoorva Garcia DO Primary Care Provider [phone] Encounter Details Date Type Department Care Team (Latest Contact Info) Description 11/01/2001 Outpatient Historical [facility] Rachid Ramires MD [address] [place], [place] [id number] BRONCHITIS NOS (Primary Dx) Social History Tobacco Use Types Packs/Day Years Used Date Smoking Tobacco: Never Assessed Comments Unknown Sex and Gender Information Value Date Recorded Sex Assigned at Not on file 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
--- OUTSIDE RECORDS SUMMARY | 2025-04-16 12:21 | XMS_ITS | Encounter Summary ---
Author Organization [facility] Address [address] [place] [address] Care Team Providers Care Flue Blower Name Role Phone Apoorva Garcia DO Primary Care Provider [phone] Encounter Details Date Type Department Care Team (Latest Contact Info) Description 03/04/2000 Outpatient Historical [facility] Khalif Ferreira MD [address] [place] [address] Allergic rhinitis, cause unspecified (Primary Dx); Depressive disorder, not elsewhere classified Social History Tobacco Use Types Packs/Day Years Used Date Smoking Tobacco: Never Assessed Comments Unknown Sex and Gender Information Value Date Recorded Sex Assigned at Not on file 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
--- OUTSIDE RECORDS SUMMARY | 2025-04-16 12:22 | XMS_ITS | Encounter Summary ---
Author Organization [facility] Address [address] [place] [address] Care Team Providers Care Process Helper Name Role Phone Apoorva Garcia DO Primary Care Provider [phone] Encounter Details Date Type Department Care Team (Latest Contact Info) Description 10/11/2003 Outpatient Historical [facility] Eliel Valles MD [address] [address] SUPERVIS OTHER NORMAL PREG (Primary Dx) Social History Tobacco Use Types Packs/Day Years Used Date Smoking Tobacco: Never Assessed Comments Unknown Sex and Gender Information Value Date Recorded Sex Assigned at Not on file 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
--- OUTSIDE RECORDS SUMMARY | 2025-04-16 12:22 | XMS_ITS | Clinical Summary ---
Author Organization [facility] Address [address] [place] [address] Care Team Providers Care Vp [employer] [place] Name Role Phone Deion Cuevas DO Primary Care Provider [phone] Allergies No known active allergies Medications fluticasone propionate (FLONASE) 50 mcg/spray [place], Suspension nasal inhalerIndication s:Seasonal allergic rhinitis, unspecified trigger Administer 2 Sprays in each nostril daily. 16 Gram 11 1 Active hyoscyamine 0.125 mg Tablet, Sublingual Place 0.125 mg under tongue every 4 hours as needed for Other (See Comment). For abdominal pain Active azelastine (ASTELIN) 137 mcg/actuation nasal spray 2 Active Flovent HFA 110 mcg/actuation HFA Aerosol Inhaler Take 1 Puff by inhalation 2 times daily. 2 Active ALBUTEROL INHALATION Take by inhalation. 8 Active ipratropium-albut Asiya (DUONEB) 0.5 mg-3 mg(2.5 mg base)/3 mL Solution for Nebulization Take 3 mL by inhalation. 8 Active diphenhydrAMINE (BENADRYL) 25 mg capsule Take by mouth every 6 hours as needed . 8 Active nebulizer Use as directed 8 Active albuterol (PROVENTIL,VENTOL IN) 2.5 mg /3 mL (0.083 %) Solution for Nebulization Take 3 mL (2.5 mg) by inhalation every 6 hours as needed for Shortness of Breath. 3 mL 2 3 Active cpap medical deviceIndications :TRUONG (obstructive sleep apnea) CPAP Auto with heated humidifier. Length of need:99 months; patient preference mask with headgear every 6 months; mask only every 3 months; 2 cushions per month; Tubing heated 1 every 3 months, water chamber 1 every 6 months, chin strap 1 every 6 months, filters disposable 2 per month, filters reusable 1 per 6 months. 1 Each 4 Active ibuprofen (MOTRIN) 800 mg tablet Take 1 Tablet (800 mg) by mouth every 6 hours as needed for Pain. 90 Tablet 2 4 Active albuterol sulfate HFA 90 mcg/actuation aerosol inhalerIndication s:Moderate persistent asthma with acute exacerbation Take 2 Puffs by inhalation every 6 hours as needed for Shortness of Breath. 8.5 Gram 2 4 Active HYDROcodone-aceta minophen (NORCO) 5-325 mg tabletIndications :Cervical spondylosis,Myofa scial pain,Chronic neck pain Take 1 Tablet by mouth every 8 hours as needed for Pain. 20 Tablet 4 Active DULoxetine (CYMBALTA) 60 mg Capsule, Delayed Release(E.C.)Marcie cations:Fibromyal estefanía,Chronic pain syndrome Take 1 capsule by mouth once daily 90 Capsule 5 Active budesonide-formot Asiya (SYMBICORT) 160-4.5 mcg/actuation HFA Aerosol InhalerIndication s:Moderate persistent asthma with acute exacerbation Take 2 Puffs by inhalation 2 times daily. 10.2 Gram 3 5 Active montelukast (SINGULAIR) 10 mg tabletIndications :Moderate persistent asthma with acute exacerbation,Jae rgic rhinitis, unspecified seasonality, unspecified trigger Take 1 Tablet (10 mg) by mouth daily at bedtime. 90 Tablet 3 5 Active topiramate (TOPAMAX) 50 mg tabletIndications :Intractable migraine without aura and without status migrainosus Take 1 Tablet (50 mg) by mouth 2 times daily. 60 Tablet 5 5 Active busPIRone (BUSPAR) 5 mg tabletIndications :MARCO (generalized anxiety disorder) Take 1-2 Tablets (5-10 mg) by mouth 2 times daily as needed for Anxiety. 90 Tablet 2 5 Active tretinoin (RETIN-A) 0.025 % Cream Apply to affected area daily. 20 Gram 1 5 Active eszopiclone (Lunesta) 3 mg TabletIndications :Primary insomnia Take 1 Tablet (3 mg) by mouth nightly as needed for Insomnia. 30 Tablet 2 5 Active cephALEXin (KEFLEX) 500 mg capsuleIndication s:Folliculitis Take 1 Capsule (500 mg) by mouth 3 times daily for 10 days. 30 Capsule 5 04/23/20 25 Active Active Problems Problem Noted Date Diagnosed Date Primary insomnia 01/28/2025 MARCO (generalized anxiety disorder) 01/28/2025 Moderate persistent asthma with acute exacerbati on 01/28/2025 Chronic radicular lumbar pain 03/26/2024 DJD (degenerative joint disease), lumbosacral Intractable migraine without aura and without status migrainosus 04/18/2019 Benign hypertension 04/18/2019 Seasonal allergic rhinitis 04/18/2019 Irritable bowel syndrome with diarrhea 9 Mixed hyperlipidemia 04/18/2019 Menorrhagia with irregular cycle 02/14/2018 Gastroesophageal reflux disease 02/14/2018 Encounters Date Type Department Care Team Description 04/13/2025 Orders Only [address] [phone] Ade Lin FNP Folliculitis (Primary Dx) 03/13/2025 External Device Data [facility] ABSTRACTION Provider, Abstract 03/12/2025 External Device Data [facility] ABSTRACTION Provider, Abstract 03/01/2025 Results Follow-Up [address] [address] Ade Lin FNP COMPREHENSIVE METABOLIC PANEL 03/01/2025 Results Follow-Up [address] [phone] Ade Lin FNP CBC WITH DIFFERENTIAL, HEMOGLOBIN A1C, LIPID PANEL 02/22/2025 7:15 AM CDT - 02/22/2025 11:59 PM CDT Hospital Encounter [facility] [place] [address] [place] [phone] Ade Lin FNP Discharge Disposition: Home or Self Care 02/19/[address] [phone] Ade Lin FNP Needs Appointment (For Mammo) 02/07/2025 Mobile Encounter [address] [phone] Ade Lin FNP 01/31/[address] [phone] Deion Cuevas DO Primary insomnia 01/29/2025 External Device Data STL ABSTRACTION Provider, Abstract 01/29/2025 External Device Data STL ABSTRACTION Provider, Abstract 01/29/2025 External Device Data STL ABSTRACTION Provider, Abstract 01/28/2025 3:20 PM CDT Office Visit [address] [phone] Ade Lin FNP Normal routine physical examination (Primary Dx); Breast cancer screening by mammogram; Moderate persistent asthma with acute exacerbation; Allergic rhinitis, unspecified seasonality, unspecified trigger; Intractable migraine without aura and without status migrainosus; MARCO (generalized anxiety disorder); Primary insomnia 01/22/[address] [phone] Ade Lin FNP Fibromyalgia; Chronic pain syndrome 01/22/[address] [address] Ade Lin FNP Fibromyalgia; Chronic pain syndrome from Last 3 Months Immunizations Immunization Administration Dates Next Due Influenza Seasonal Unspecified Formulation IM ,08/07/2019 Family History Medical History Relation Name Comments Esophageal Cancer Father Breast Cancer Maternal Aunt great older- unsure of age Melanoma Maternal Grandmother Hodgkin's lymphoma Mother non Lung Cancer Paternal Grandfather Cancer - Other Neg Hx Colon Cancer Neg Hx Ovarian Cancer Neg Hx Pancreatic Cancer Neg Hx Uterine or Endometrial Cance r, Not Including Cervical Neg Hx Relation Name Status Comments Father Maternal Aunt great Alive Maternal Grandmother Mother Paternal Grandfather Social History Tobacco Use Types Packs/Day Years Used Date Smoking Tobacco: Never Smokeless Tobacco: Never Tobacco Cessation:Counseling Given: Not Answered Alcohol Use Standard Drinks/Week Comments Yes 0 [...] on file Legal Sex Female 5:54 AM TIRE BAGGER Gender Identity Not on file Sexual Orientation Not on file Last Filed Vital Signs Vital Sign Reading Time Taken Comments Blood Pressure 128/68 01/28/2025 3:38 PM CDT Pulse 108 01/28/2025 3:38 PM CDT Temperature 36.7 C (98 F) 01/28/2025 3:38 PM CDT Respiratory Rate 18 01/28/2025 3:38 PM CDT Oxygen Saturation 96% 01/28/2025 3:38 PM CDT Inhaled Oxygen Concentration - - Weight 94.3 kg (208 lb) 01/28/2025 3:38 PM CDT Height 162.6 cm (5' 4 ) 01/28/2025 3:38 PM CDT Body Mass Index 35.7 01/28/2025 3:38 PM CDT Plan of Treatment Health Maintenance Due Date Last Done Comments HEPATITIS B VACCINES (1 of 3 - 19+ 3-dose series) 1989 DTAP/TDAP/TD VACCINES (1 - Tdap) 12/28/2005 12/28/19 06 FIT-DNA Q 3 years 2015 FIT/FOBT Q 1 year 2015 Flex Sig/CT Colonography Q 5 years 2015 ZOSTER VACCINE (1 of 2) 2020 PAP SMEAR 04/17/2021 04/17/2018, 03/25, 04/17/2018 CERVICAL CANCER SCREENING 04/17/2023 HPV/Cotest (21-29) 04/17/2023 04/17/2018, 04/17/2018 HPV/Cotest (30-65) 04/17/2023 04/17/2018, 04/17/2018 COVID-19 Vaccine ( - 2023-2 5 season) 2024 06/19/2021, 05/29/2021 BREAST CANCER SCREENING 01/12/2025 01/13/20 24, 06/29/2023, 12/03/2022 Pre-Diabetes and Diabetes Screening 02/23/2028 02/22/2025, 03/01/2024, 02/17/2023 COLORECTAL SCREENING 09/05/2029 09/05/2024, 09/05/2024, 07/28/2018, Additional history exists Colorectal Cancer Screening 09/05/2029 INFLUENZA VACCINE Completed 01/09/2025, , 07/30/2021, Additional history exists Preventative Visit- Commercial Completed 0 01/28/2025, 02/17/2023, 03/05/2022 Procedures Procedure Name Priority Date/Time Associated Diagnosis Comments COMPREHENSIVE METABOLIC PANEL Routine 02/22/2025 7:20 AM CDT Decreased renal function LIPID PANEL Routine 02/22/2025 7:20 AM CDT Mixed hyperlipidemia HEMOGLOBIN A1C Routine 02/22/2025 7:20 AM CDT Diabetes mellitus screening CBC WITH DIFFERENTIAL Routine 02/22/2025 7:20 AM CDT Fatigue, unspecified type Benign hypertension REFERENCE LAB PROCESSING FEE Routine 02/22/2025 7:20 AM CDT MARCO (generalized anxiety disorder) COLONOSCOPY REPORT 09/05/2024 1: 47 PM TIRE BAGGER MAMMO 3D RENETTA DIAGNOSTIC BILAT W OR WO CAD Routine 01/13/2024 1:45 PM CDT History of lump of right breast CERV/VAG CYTO SCREEN PAP W/HPV Routine 04/17/2018 12:13 PM CDT CERV/VAG CYTO SCREEN PAP W/O HPV Routine 04/17/2018 12:13 PM CDT from Last 3 Months or Most Recently Relevant to Health Maintenance Results * REFERENCE LAB PROCESSING FEE (02/22/2025 7:20 AM CDT) Pathologist [facility] REFERENCE LAB SENDOUT Sent to Ref Lab 02/22/2025 9:00 AM CDT [facility] Other, specify BLOOD SPECIMEN / Unknown Collection / Unknown 02/22/2025 7:20 AM CDT 02/22/2025 7:38 AM CDT us Ade Lin PULMONOLOGY TECHNICIAN CHEMISTRY ORDERABLES Final Re sult [facility] CLIA # [id number] [address] [place] [id number] * (ABNORMAL) CBC WITH DIFFERENTIAL (02/22/2025 7:20 AM CDT) Pathologist [facility] WBC 8.4 3.8 - 10.8 Thousand/u L [facility] RBC 5.04 3.80 - 5.10 Million/uL [facility] HEMOGLOBIN 14.9 11.7 - 15.5 g/dL [facility] HEMATOCRIT 46.8(H) 35.0 - 45.0 % [facility] MCV 92.9 80.0 - 100.0 fL [facility] MCH 29.6 27.0 - 33.0 pg [facility] MCHC 31.8(L) 32.0 - 36.0 g/dL [facility] Comment: For adults, a slight decrease in the calculated MCHC value (in the range of 30 to 32 g/dL) is most likely not clinically significant; however, it should be interpreted with caution in correlation with other red cell parameters and the patient's clinical condition. RDW 13.1 11.0 - 15.0 % [facility] PLATELETS 285 140 - 400 Thousand/u L [facility] MPV 11.5 7.5 - 12.5 fL [facility] NEUTROPHIL ABSOLUTE 4,561 1,500 - 7,800 cells/uL [facility] LYMPHOCYTE ABSOLUTE 2,940 850 - 3,900 cells/uL [facility] MONOCYTE ABSOLUTE 529 200 - 950 cells/uL [facility] EOSINOPHIL ABSOLUTE 252 15 - 500 cells/uL [facility] BASOPHILS ABSOLUTE 118 0 - 200 cells/uL [facility] NEUTROPHIL 54.3 % [facility] LYMPHOCYTES 35.0 % [facility] MONOCYTE 6.3 % [facility] EOSINOPHILS 3.0 % [facility] BASOPHILS 1.4 % [facility] Comment: Test Performed at: [facility] [address] [place] [address] Zac Lam MD Blood 02/22/2025 7:20 AM CDT 02/23/2025 4:11 AM CDT us Ade Lin PULMONOLOGY TECHNICIAN HEMATOLOGY ORDERABLES Final R esult [facility] [phone] [facility] [address] [place] [address] * HEMOGLOBIN A1C (02/22/2025 7:20 AM CDT) HEMOGLOBIN A1C 5.5 <5.7 % [facility] Comment: For the purpose of screening for the presence of diabetes: <5.7% Consistent with the absence of diabetes 5.7-6.4% Consistent with increased risk for diabetes (prediabetes) > or =6.5% Consistent with diabetes This assay result is consistent with a decreased risk of diabetes. Currently, no consensus exists regarding use of hemoglobin A1c for diagnosis of diabetes in children. According to [place] Diabetes Association (ADA) guidelines, hemoglobin A1c <7.0% represents optimal control in non- diabetic patients. Different metrics may apply to specific patient populations. Standards of Medical Care in Diabetes(ADA). ESTIMATED AVERAGE GLUCOSE (MG/DL) 111 mg/dL [facility] ESTIMATED AVERAGE GLUCOSE (MMOL/L) 6.2 mmol/L [facility] Comment: Test Performed at: [facility] [address] [place] [address] Zac Lam MD Blood 02/22/2025 7:20 AM CDT 02/23/2025 4:11 AM CDT us Ade Lin PULMONOLOGY TECHNICIAN CHEMISTRY ORDERABLES Final Re sult [facility] [phone] [facility] [address] [place] [address] * (ABNORMAL) LIPID PANEL (02/22/2025 7:20 AM CDT) CHOLESTEROL 187 <200 mg/dL [facility] HDL 52 > OR = 50 mg/dL [facility] TRIGLYCERIDE 172(H) <150 mg/dL [facility] LDL CALCULATED 106(H) mg/dL (calc) [facility] Comment: Reference range: <100 Desirable range <100 mg/dL for primary prevention; <70 mg/dL for patients with CHD or diabetic patients with > or = 2 CHD risk factors. LDL-C is now calculated using the Lucas-Nas calculation, which is a validated novel method providing better accuracy than the Friedewald equation in the estimation of LDL-C. Lucas SS et al. JOAQUIN. 2013;310(19): 1890-0872 (http://education.Yellow Pages.Octavian/faq/UYL119) CHOL/HDL RATIO 3.6 <5.0 (calc) [facility] NON-HDL CHOLESTEROL 135(H) <130 mg/dL (calc) [facility] Comment: For patients with diabetes plus 1 major ASCVD risk factor, treating to a non-HDL-C goal of <100 mg/dL (LDL-C of <70 mg/dL) is considered a therapeutic option. Test Performed at: [facility] [address] [address] Zac Lam MD Blood 02/22/2025 7:20 AM CDT 02/23/2025 4:11 AM CDT us Ade Lin PULMONOLOGY TECHNICIAN CHEMISTRY ORDERABLES Final Re sult [facility] [phone] [facility] [address] [address] * (ABNORMAL) COMPREHENSIVE METABOLIC PANEL (02/22/2025 7:20 AM CDT) GLUCOSE 88 65 - 99 mg/dL [facility] Comment: Fasting reference interval BUN 16 7 - 25 mg/dL [facility] CREATININE 1.05(H) 0.50 - 1.03 mg/dL [facility] GFR 63 > OR = 60 mL/min/1.7 3m2 [facility] BUN/CREAT RATIO 15 6 - 22 (calc) [facility] SODIUM 141 135 - 146 mmol/L [facility] POTASSIUM 4.0 3.5 - 5.3 mmol/L [facility] CHLORIDE 107 98 - 110 mmol/L [facility] CO2 22 20 - 32 mmol/L [facility] CALCIUM 9.5 8.6 - 10.4 mg/dL [facility] TOTAL PROTEIN 7.1 6.1 - 8.1 g/dL [facility] ALBUMIN 4.5 3.6 - 5.1 g/dL [facility] GLOBULIN 2.6 1.9 - 3.7 g/dL (calc) [facility] ALBUMIN/GLOBULIN RATIO 1.7 1.0 - 2.5 (calc) [facility] BILIRUBIN TOTAL 0.5 0.2 - 1.2 mg/dL [facility] ALKALINE PHOSPHATASE 122 37 - 153 U/L [facility] AST 23 10 - 35 U/L [facility] ALT 25 6 - 29 U/L [facility] Comment: FASTING: UNKNOWN Test Performed at: [facility] [address] [place] [address] Zac Lam MD Blood 02/22/2025 7:20 AM CDT 02/23/2025 9:08 AM CDT us Ade DELCID CHEMISTRY ORDERABLES Final Re sult [facility] [phone] [facility] [address] [place] [address] * COLONOSCOPY REPORT (09/05/2024 1:47 PM TIRE BAGGER) Narrative Procedure Note Lauri Mejia MD - 09/05/2024 1:47 PM CST [facility] GI Patient Name: Angel Richard Procedure Date: 09/05/2024 Date of : 1970 Admit Type: Outpatient Age: 53 Attending MD: Lauri Mejia , , Procedure: Colonoscopy Indications: Screening for colorectal malignant neoplasm Providers: Lauri Mejia Referring MD: BHAVIN Garcia Medicines: Monitored Anesthesia Care Complications: No immediate complications. Estimated blood loss: Minimal. Procedure: Pre-Anesthesia Assessment: - Prior to the procedure, a History and Physical was performed, and patient medications and allergies were reviewed. The patient's tolerance of previous anesthesia was also reviewed. The risks and benefits of the procedure and the sedation options and risks were discussed with the patient. All questions were answered, and informed consent was obtained. Prior Anticoagulants: The patient has taken no anticoagulant or antiplatelet agents. ASA Grade Assessment: II - A patient with mild systemic disease. After reviewing the risks and benefits, the patient was deemed in satisfactory condition to undergo the procedure. - [place] Protocol: - Pre-procedure Verification: Prior to the procedure, the patient's identity was verified by full name and date of . The patient's identity was verified on all pertinent medical records, including History and Physical. Also prior to the procedure, a History and Physical was performed, and patient medications, allergies and sensitivities were reviewed. The patient's tolerance of previous anesthesia was reviewed. The patient is competent. The risks and benefits of the procedure and the sedation options and risks were discussed with the patient. All questions were answered and informed consent was obtained. - Time-Out: Prior to the start of the procedure, the patient's identification, proposed procedure, accurate signed consent, correctly labeled images and records, and need for prophylactic antibiotics were verified by the physician and the nurse in the endoscopy suite. After I obtained informed consent, the scope was passed under direct vision. Throughout the procedure, the patient's blood pressure, pulse, and oxygen saturations were monitored continuously. The Colonoscope was introduced through the anus and advanced to the cecum, identified by appendiceal orifice and ileocecal valve. The colonoscopy was performed without difficulty. The patient tolerated the procedure well. The ileocecal valve, appendiceal orifice, and rectum were photographed. The entire colon was examined. Estimated Blood Loss: Estimated blood loss was minimal. Findings: The perianal and digital rectal examinations were normal. Pertinent negatives include normal sphincter tone, no palpable rectal lesions and no anal lesion or abnormality. A few small-mouthed diverticula were found in the sigmoid colon and in the descending colon. There was no evidence of diverticular bleeding. Non-bleeding internal hemorrhoids were found during retroflexion. The hemorrhoids were small. The entire examined colon appeared normal. Impression: - Mild diverticulosis in the sigmoid colon and in the descending colon. There was no evidence of diverticular bleeding. - Non-bleeding internal hemorrhoids. - The entire examined colon is normal. - No specimens collected. Recommendation: - Resume previous diet. - Continue present medications. - Repeat colonoscopy in 10 years for surveillance. - Patient has a contact number available for emergencies. The signs and symptoms of potential delayed complications were discussed with the patient. Return to normal activities tomorrow. Written discharge instructions were provided to the patient. - Return to primary care physician as previously scheduled. - The findings and recommendations were discussed with the patient's family. Lauri Mejia, 09/05/2024 1:46:59 PM Number of Addenda: 0 Note Initiated On: 09/05/2024 12:45 PM Scope Withdrawal Time 0 hours 6 minutes 8 seconds Scope In: 1:04:51 PM Scope Out: 1:12:58 PM [address] [place], [place] us Lauri Mejia MD GI PROCEDURE ORDERABL ES Final Result * MAMMO 3D RENETTA DIAGNOSTIC BILAT W OR WO CAD (01/13/2024 1:45 PM CDT) Anatomical Region Laterality Modality Breast Bilateral Mammography 01/13/2024 1:45 PM CDT Impressions 01/13/2024 5:30 PM CDT IMPRESSION: 1. No imaging evidence of malignancy. The patient was given verbal and written results and recommendations by the technologist. BI-RADS ASSESSMENT: 2 - Benign. RECOMMENDATION: Routine annual screening mammogram in 1 year. [id number] Narrative 01/13/2024 5:30 PM CDT EXAM: MAMMO 3D RENETTA DIAGNOSTIC BILAT W OR WO CAD, MAMMO BREAST US RIGHT LTD INDICATION: Patient presents for imaging followup of probably benign right breast cyst. She also reports a right breast lump. COMPARISON: Comparison was made to exams dating back to 2019. MAMMOGRAM TECHNIQUE: 2-D and 3D tomosynthesis diagnostic images were acquired and CAD was also used. BREAST COMPOSITION: The breasts are heterogeneously dense, which may obscure small masses. FINDINGS: RIGHT BREAST: There are no suspicious masses, calcifications or areas of distortion. LEFT BREAST: There are no suspicious masses, calcifications or areas of distortion. RIGHT BREAST ULTRASOUND: A limited right breast ultrasound was performed with real-time scanning. At 3:00, 7 cm from the nipple a benign cluster of cysts. This is in region of the palpable area of concern. At 4:00, 3 cm from the nipple a benign cluster of cysts is present. Benign cluster of cysts is present at 6:30, 3 cm. Procedure Note Wilian Gabriel MD - 01/13/2024 EXAM: MAMMO 3D RENETTA DIAGNOSTIC BILAT W OR WO CAD, MAMMO BREAST US RIGHT LTD INDICATION: Patient presents for imaging followup of probably benign right breast cyst. She also reports a right breast lump. COMPARISON: Comparison was made to exams dating back to 2019. MAMMOGRAM TECHNIQUE: 2-D and 3D tomosynthesis diagnostic images were acquired and CAD was also used. BREAST COMPOSITION: The breasts are heterogeneously dense, which may obscure small masses. FINDINGS: RIGHT BREAST: There are no suspicious masses, calcifications or areas of distortion. LEFT BREAST: There are no suspicious masses, calcifications or areas of distortion. RIGHT BREAST ULTRASOUND: A limited right breast ultrasound was performed with real-time scanning. At 3:00, 7 cm from the nipple a benign cluster of cysts. This is in region of the palpable area of concern. At 4:00, 3 cm from the nipple a benign cluster of cysts is present. Benign cluster of cysts is present at 6:30, 3 cm. IMPRESSION: 1. No imaging evidence of malignancy. The patient was given verbal and written results and recommendations by the technologist. BI-RADS ASSESSMENT: 2 - Benign. RECOMMENDATION: Routine annual screening mammogram in 1 year. [id number] us Ade Lin PULMONOLOGY TECHNICIAN MAMMO ORDERABLES Final Result * CERV/VAG CYTO SCREEN PAP W/HPV (04/17/2018 12:13 PM CDT) PAP INTERP See Separate Results 04/19/2018 1:10 PM CDT [facility] Genital SWAB OF ENDOCERVIX / Unknown Collection / Unknown 04/17/2018 12:13 PM CDT 04/18/2018 9:04 AM CDT us Roxana Rogers MD PATHOLOGY/CYTOLOGY ORD ERABLES Final Result [facility] Color Eight [facility] CLIA# [id number] [facility] [place] [address] [facility] CLIA # [id number] [address] [place] [address] [place] [address] * CERV/VAG CYTO SCREEN PAP W/O HPV (04/17/2018 12:13 PM CDT) CLINICAL INFORMATION HEALTHY 04/24/2018 1:50 PM CDT [facility] LAST MENSTRUAL PERIOD SEE COMMENT 04/24/2018 1:50 PM CDT [facility] Comment:Information not prov ided PREV PAP: SEE COMMENT 04/24/2018 1:50 PM CDT [facility] Comment:Information not prov ided PREV BX: SEE COMMENT 04/24/2018 1:50 PM CDT [facility] Comment:Information not prov ided SOURCE Endocervix 04/24/2018 1:50 PM CDT [facility] ADEQUACY: SEE COMMENT 04/24/2018 1:50 PM CDT [facility] Comment: Satisfactory for evaluation. Endocervical/transformation zone component present. Age and/or menstrual status not provided PAP INTERP SEE COMMENT 04/24/2018 1:50 PM CDT [facility] Comment:Negative for intraep ithelial lesion or malignancy. COMMENT SEE COMMENT 04/24/2018 1:50 PM CDT [facility] Comment: This Pap test has been evaluated with computer assisted technology. DRUGLESS PHYSICIAN: SEE COMMENT 2017 1:50 PM CDT [facility] Comment: TMK, CT(ASCP) CT screening location: [place] [address] [place] [address] EXPLANATORY NOTE SEE COMMENT 018 1:50 PM CDT [facility] LAB [facility] Comment: EXPLANATORY NOTE: The Pap is a screening test for cervical cancer. It is not a diagnostic test and is subject to false negative and false positive results. It is most reliable when a satisfactory sample, regularly obtained, is submitted with relevant clinical findings and history, and when the Pap result is evaluated along with historic and current clinical information. Genital SWAB OF ENDOCERVIX / Unknown Collection / Unknown 04/17/2018 12:13 PM CDT 04/19/2018 7:09 AM CDT Narrative [facility] - 04/24/2018 1:50 PM CDT Performing Organization Information: Site ID: Name: [facility] Address: [address] [place] [address] Director: Zac Lam us Roxana Rogers MD PATHOLOGY/CYTOLOGY ORD ERABLES Final Result [facility] from Last 3 Months or Most Recently Relevant to Health Maintenance Insurance [facility] [id number] Advance Directives For more information, please contact: [phone] * Full Code (Latest Code Status on File) Date Activated Date Inactivated Comments 09/05/2024 12:23 PM 09/05/2024 4:02 PM Care Teams Vp Ad Sales West Relationship Specialty Start Date End Date Deion Cuevas DO [address], [place] [address] PCP - General Family Practice 03/22/23
--- OUTSIDE RECORDS SUMMARY | 2025-04-16 12:22 | XMS_ITS | Encounter Summary ---
Author Organization [facility] Address [address] [place] [address] Care Team Providers Care Night Time Nanny Name Role Phone Apoorva Garcia DO Primary Care Provider +1 [phone] Encounter Details Date Type Department Care Team (Late st Contact Info) Description 02/07/2003 Emergency [facility] Emergency Department [address] [place] [address] Meenakshi Romero MD NO ADDRESS ON FILE ABDOMINAL PAIN EPIGASTRIC (Primary Dx) Social History Tobacco Use Types Packs/Day Years Used Date Smoking Tobacco: Never Assessed Comments Unknown Sex and Gender Information Value Date Recorded Sex Assigned at Not on file 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
--- OUTSIDE RECORDS SUMMARY | 2025-04-16 12:22 | XMS_ITS | Encounter Summary ---
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
--- OUTSIDE RECORDS SUMMARY | 2025-04-16 12:22 | XMS_ITS | Encounter Summary ---
Author Organization [facility] Address [address] [place] [address] Care Team Providers Care Forger Helper Name Role Phone Apoorva Garcia DO Primary Care Provider +1- [phone] Encounter Details Date Type Department Care Team (Latest Contact Info) Description 06/01/2006 Outpatient Historical [facility] [address] [place] [address] Javier Orlando MD [address] [address] Cervicalgia (Primary Dx); Pain in Limb Social History Tobacco Use Types Packs/Day Years Used Date Smoking Tobacco: Never Assessed Comments Unknown Sex and Gender Information Value Date Recorded Sex Assigned at Not on file 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
--- OUTSIDE RECORDS SUMMARY | 2025-04-16 12:22 | XMS_ITS | Encounter Summary ---
Author Organization [facility] Address [address] [place] [address] Care Team Providers Care Thermoplastic Technician Name Role Phone Apoorva Garcia DO Primary Care Provider +1- [phone] Encounter Details Date Type Department Care Team (Latest Contact Info) Description 04/17/2002 Outpatient Historical [facility] Khalif Ferreira MD [address] [place] [address] GENITAL WARTS NOS (Primary Dx); ALOPECIA NOS; GENERALIZED ANXIETY DIS Social History Tobacco Use Types Packs/Day Years Used Date Smoking Tobacco: Never Assessed Comments Unknown Sex and Gender Information Value Date Recorded Sex Assigned at Not on file 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
--- OUTSIDE RECORDS SUMMARY | 2025-04-16 12:22 | XMS_ITS | Encounter Summary ---
Author Organization [facility] Address [address] [place] [address] Care Team Providers Care Fish Hatchery Inspector Name Role Phone Apoorva Garcia DO Primary Care Provider +1- [phone] Encounter Details Date Type Department Care Team (Latest Contact Info) Description 02/19/2002 Outpatient Historical [facility] Khalif Ferreira MD [address] [place] [address] MIGRAINE NOS W/O MENTN INTRACTABLE (Primary Dx); ANXIETY STATE NOS Social History Tobacco Use Types Packs/Day Years Used Date Smoking Tobacco: Never Assessed Comments Unknown Sex and Gender Information Value Date Recorded Sex Assigned at Not on file 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
--- OUTSIDE RECORDS SUMMARY | 2025-04-16 12:22 | XMS_ITS | Encounter Summary ---
Author Organization [facility] Address [address] [place] [address] Care Team Providers Care Assistant Editor Name Role Phone Apoorva Garcia DO Primary Care Provider +1- [phone] Encounter Details Date Type Department Care Team (Latest Contact Info) Description 10/26/2005 Outpatient [facility] [address] [place] [address] Javier Orlando MD [address] [place] [address] CERVICALGIA (Primary Dx) Social History Tobacco Use Types Packs/Day Years Used Date Smoking Tobacco: Never Assessed Comments Unknown Sex and Gender Information Value Date Recorded Sex Assigned at Not on file 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
--- OUTSIDE RECORDS SUMMARY | 2025-04-16 12:22 | XMS_ITS | Encounter Summary ---
Author Organization [facility] Address [address] [place] [address] Care Team Providers Care Surgical Elastic Knitter Hand Frame Name Role Phone Apoorva Garcia DO Primary Care Provider +1- [phone] Encounter Details Date Type Department Care Team (Late st Contact Info) Description 12/11/2002 Outpatient Historical [facility] Eliel Valles MD [address] [address] Social History Tobacco Use Types Packs/Day Years Used Date Smoking Tobacco: Never Assessed Comments Unknown Sex and Gender Information Value Date Recorded Sex Assigned at Not on file 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
--- OUTSIDE RECORDS SUMMARY | 2025-04-16 12:22 | XMS_ITS | Encounter Summary ---
Author Organization [facility] Address [address] [place] [address] Care Team Providers Care Braiding Machine Operator Name Role Phone Apoorva Garcia DO Primary Care Provider +1 [phone] Encounter Details Date Type Department Care Team (Latest Contact Info) Description 12/24/2003 Outpatient Historical [facility] Eliel Valles MD [address] [address] ROUT POSTPART FOLLOW-UP (Primary Dx) Social History Tobacco Use Types Packs/Day Years Used Date Smoking Tobacco: Never Assessed Comments Unknown Sex and Gender Information Value Date Recorded Sex Assigned at Not on file 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
--- OUTSIDE RECORDS SUMMARY | 2025-04-16 12:22 | XMS_ITS | Encounter Summary ---
Author Organization [facility] Address [address] [place] [address] Care Team Providers Care Drywall Hanger Framer Name Role Phone Apoorva Garcia DO Primary Care Provider +1- [phone] Encounter Details Date Type Department Care Team (Latest Contact Info) Description 05/24/2006 Outpatient Historical [facility] [address] 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
--- OUTSIDE RECORDS SUMMARY | 2025-04-16 12:22 | XMS_ITS | Encounter Summary ---
Author Organization [facility] Address [address] [place] [address] Care Team Providers Care Plunger Machine Operator Name Role Phone Apoorva Garcia DO Primary Care Provider +1- [phone] Encounter Details Date Type Department Care Team (Latest Contact Info) Description 11/14/2003 Inpatient Historical [facility] Eliel Valles MD [address] [address] [address] DEG LACERAT-DEL (Primary Dx) Social History Tobacco Use Types Packs/Day Years Used Date Smoking Tobacco: Never Assessed Comments Unknown Sex and Gender Information Value Date Recorded Sex Assigned at Not on file 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
--- OUTSIDE RECORDS SUMMARY | 2025-04-16 12:22 | XMS_ITS | Encounter Summary ---
Author Organization [facility] Address [address] [place] [address] Care Team Providers Care Food And Beverage Analyst Name Role Phone Apoovra Garcia DO Primary Care Provider +1- [phone] Encounter Details Date Type Department Care Team (Latest Contact Info) Description 05/24/2006 Outpatient [facility] [address] [place] [address] Javier Orlando MD [address] [place] [address] Disturbance of Skin Sensation (Primary Dx) Social History Tobacco Use Types Packs/Day Years Used Date Smoking Tobacco: Never Assessed Comments Unknown Sex and Gender Information Value Date Recorded Sex Assigned at Not on file 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
--- OUTSIDE RECORDS SUMMARY | 2025-04-16 12:22 | XMS_ITS | Encounter Summary ---
Author Organization [facility] Address [address] [place] [address] Care Team Providers Care Breaster Name Role Phone Apoorva Garcia DO Primary Care Provider +1- [phone] Encounter Details Date Type Department Care Team (Latest Contact Info) Description 06/29/2005 Outpatient Historical [facility] Javier Orlando MD [address] [place] [address] [address] CERVICALGIA (Primary Dx) Social History Tobacco Use Types Packs/Day Years Used Date Smoking Tobacco: Never Assessed Comments Unknown Sex and Gender Information Value Date Recorded Sex Assigned at Not on file 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
--- OUTSIDE RECORDS SUMMARY | 2025-04-16 12:22 | XMS_ITS | Clinical Summary ---
Author Organization [facility] Address [address] [place] [address] Care Team Providers Care Epic Willow Analyst Name Role Phone Apoorva Garcia DO Primary Care Provider Allergies No known active allergies Medications ALBUTEROL INHALATION Take by inhalation. Active ipratropium-albut tiffani (DUONEB) 0.5 mg-3 mg(2.5 mg base)/3 mL Solution for Nebulization Take 3 mL by inhalation. Active diphenhydrAMINE (BENADRYL) 25 mg capsule Take by mouth every 6 hours as needed . Active nebulizer Use as directed Active dicyclomine (BENTYL) 10 mg capsuleIndication s:Irritable bowel syndrome with diarrhea Take 1 Capsule (10 mg) by mouth 4 times daily. 120 Capsule 3 9 Active fluticasone propionate (FLONASE) 50 mcg/spray Harvey, Suspension nasal inhalerIndication s:Seasonal allergic rhinitis, unspecified trigger Administer 2 Sprays in each nostril daily. 16 Gram 11 9 Active pseudoephedrine-g uaiFENesin (MUCINEX D) 60-600 mg Extended Release 12 hour tablet Take 1 Tablet by mouth 2 times daily. 30 Tablet 1 9 Active fexofenadine (BARBARA) 180 mg tablet Take 180 mg by mouth daily. Active cetirizine (ZyrTEC) 10 mg tablet Take 10 mg by mouth daily. Active albuterol (PROVENTIL,VENTOL IN) 2.5 mg /3 mL (0.083 %) Solution for NebulizationIndic ations:Moderate asthma with exacerbation, unspecified whether persistent,Acute bronchitis, unspecified organism Take 3 mL (2.5 mg) by inhalation every 6 hours as needed for Shortness of Breath. 1 box 3 mL 1 0 Active pantoprazole (Protonix) 40 mg Tablet, Delayed Release (E.C.)Indications :Gastroesophageal reflux disease without esophagitis Take 1 Tablet (40 mg) by mouth daily. 90 Tablet 4 0 Active buPROPion HCL (Wellbutrin SR) 150 mg Sustained Release 12 hour tabletIndications :Depression with anxiety Take 1 Tablet (150 mg) by mouth 2 times daily. 60 Tablet 6 0 Active predniSONE (DELTASONE) 10 mg tabletIndications :Acute bronchitis, unspecified organism,Allergic rhinitis, unspecified seasonality, unspecified trigger Take 3 tabs daily for 3 days, 2 tabs daily for 3 days then 1 tab daily for 3 days. 18 Tablet 0 Active busPIRone (BUSPAR) 10 mg tabletIndications :Depression with anxiety Take 1 Tablet (10 mg) by mouth 2 times daily as needed for Other (See Comment) (anxiety). 60 Tablet 2 0 Active topiramate (Topamax) 50 mg tabletIndications :Intractable migraine without aura and without status migrainosus Take 1 Tablet (50 mg) by mouth 2 times daily. 180 Tablet 1 Active montelukast (Singulair) 10 mg tabletIndications :Allergic rhinitis, unspecified seasonality, unspecified trigger Take 10 mg by mouth daily at bedtime. Active baclofen (LIORESAL) 10 mg tabletIndications :Chronic neck pain,Muscle spasms of neck Take 5-10 mg TID PRN for muscle spasms or neck pain 60 Tablet 1 1 Active ibuprofen (MOTRIN) 800 mg tabletIndications :Chronic neck pain Take 1 Tablet (800 mg) by mouth every 6 hours as needed for Pain, Mild. 90 Tablet 2 1 Active HYDROcodone-aceta minophen (NORCO) 5-325 mg tabletIndications :Chronic neck pain Take 1 Tablet by mouth every 8 hours as needed for Pain, Moderate. Max Daily Amount: 3 Tablets 15 Tablet 1 Active Active Problems Problem Noted Date Diagnosed Date Intractable migraine without aura and without status migrainosus 04/18/2019 Benign hypertension 04/18/2019 Mixed hyperlipidemia 04/18/2019 Irritable bowel syndrome with diarrhea 9 Seasonal allergic rhinitis 04/18/2019 Gastroesophageal reflux disease 02/14/2018 Menorrhagia with irregular cycle 02/14/2018 Immunizations Immunization Administration Dates Next Due Influenza Seasonal Unspecified Formulation IM Family History Medical History Relation Name Comments Colon Cancer Neg Hx Social History Tobacco Use Types Packs/Day Years Used Date Smoking Tobacco: Never Smokeless Tobacco: Never Alcohol Use Standard Drinks/Week Comments Yes 0 (1 standard drink = 0.6 oz pur e alcohol) occasion Comments No Sex and Gender Information Value Date Recorded Sex Assigned at Not on file 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 Gender Identity Not on file Sexual Orientation Not on file Last Filed Vital Signs Vital Sign Reading Time Taken Comments Blood Pressure 115/78 03/30/2021 3:49 PM CDT Pulse 107 03/30/2021 3:49 PM CDT Temperature 36.9 C (98.5 F) 03/30/2021 3:49 PM CDT Respiratory Rate 18 07/28/2018 9:29 AM CDT Oxygen Saturation 97% 03/30/2021 3:49 PM CDT Inhaled Oxygen Concentration - - Weight 80.6 kg (177 lb 12.8 oz) 03/30/2021 3:49 PM CDT Height 162.6 cm (5' 4 ) 03/30/2021 3:49 PM CDT Body Mass Index 30.52 03/30/2021 3:49 PM CDT Plan of Treatment Health Maintenance Due Date Last Done Comments Pre-Diabetes and Diabetes Screening 1970 DTAP/TDAP/TD VACCINES (1 - Tdap) 1989 HEPATITIS B VACCINES (1 of 3 - 19+ 3-dose series) 1989 FIT-DNA Q 3 years 2015 FIT/FOBT Q 1 year 2015 Flex Sig/CT Colonography Q 5 years 2015 ZOSTER VACCINE (1 of 2) 2020 PAP SMEAR 04/17/2021 04/17/2018, 04/17/2018 CERVICAL CANCER SCREENING 04/17/2023 HPV/Cotest (21-29) 04/17/2023 04/17/2018 HPV/Cotest (30-65) 04/17/2023 04/17/2018 COLORECTAL SCREENING 07/28/2023 07/28/2018, 07/28/20 Colorectal Cancer Screening 07/28/2023 INFLUENZA VACCINE (#1) 2024 08/07/2019 BREAST CANCER SCREENING 01/12/2025 01/13/20 24, 06/29/2023, 12/03/2022 Preventative Visit- Commercial Completed 01/28/2025 , 02/17/2023 Procedures Procedure Name Priority Date/Time Associated Diagnosis Comments COLONOSCOPY REPORT 07/28/2018 9: 09 AM CDT CERV/VAG CYTO SCREEN PAP W/HPV Routine 04/17/2018 12:13 PM CDT Screening for cervical cancer from Last 3 Months or Most Recently Relevant to Health Maintenance Results * COLONOSCOPY REPORT (07/28/2018 9:09 AM CDT) Narrative Procedure Note Arnaldo Weathers MD - 07/28/2018 9:08 AM CDT [facility] GI Patient Name: Kailee Grimm Procedure Date: 07/28/2018 Date of : 1970 Admit Type: Outpatient Age: 47 Attending MD: Arnaldo Weathers , Procedure: Colonoscopy Indications: Change in bowel habits Providers: Arnaldo Weathers Referring MD: BHAVIN Garcia Medicines: Midazolam 8 mg IV, Fentanyl 125 micrograms IV, (medications documented represent total dosages for multiple procedures) Complications: No immediate complications. Procedure: Pre-Anesthesia Assessment: - [place] Protocol: - Pre-procedure Verification: Prior to the procedure, the patient's identity was verified by full name and date of . The patient's identity was verified on all pertinent medical records, including History and Physical and pre-anesthesia assessment. Also prior to the procedure, a History and Physical was performed, and patient medications, allergies and sensitivities were reviewed. The patient's tolerance of previous anesthesia was reviewed. The risks and benefits of the procedure and the sedation options and risks were discussed with the patient. All questions were answered and informed consent was obtained. - Marking: The endoscopic procedure was visually marked on a patient wrist band delineating the patient name, proposed procedure and endoscopist's initials. - Time-Out: Prior to the start of [...] introduced through the anus and advanced to 3 cm into the ileum. The colonoscopy was performed without difficulty. The patient tolerated the procedure well. The quality of the bowel preparation was adequate. Estimated Blood Loss: Estimated blood loss was minimal. Findings: The digital rectal exam was normal. Pertinent negatives include normal sphincter tone. Non-bleeding internal hemorrhoids were found during retroflexion. The hemorrhoids were small. A few small-mouthed diverticula were found in the sigmoid colon and in the descending colon. A 3 mm polyp was found in the rectum. The polyp was sessile. The polyp was removed with a cold snare. Resection was complete, and retrieval was complete. The terminal ileum appeared normal. The ascending colon appeared normal. Biopsies for histology were taken with a cold forceps from the ascending colon for evaluation of microscopic colitis. Impression: - Non-bleeding internal hemorrhoids. - Diverticulosis in the sigmoid colon and in the descending colon. - One 3 mm polyp in the rectum, removed with a cold snare. Resected and retrieved. - The examined portion of the ileum was normal. - The ascending colon is normal. Biopsied. Recommendation: - Await pathology results. - Patient has a contact number available for emergencies. The signs and symptoms of potential delayed complications were discussed with the patient. Return to normal activities tomorrow. Written discharge instructions were provided to the patient. - Resume previous diet. - Continue present medications. - No aspirin, ibuprofen, naproxen, or other non-steroidal anti-inflammatory drugs for 2 weeks. - The findings and recommendations were discussed with the patient's family. - Return to primary care physician as previously scheduled. - Repeat colonoscopy in 5-10 years for surveillance. Arnaldo Weathers, 07/28/2018 9:08:37 AM Number of Addenda: 0 Note Initiated On: 07/28/2018 8:52 AM Scope Withdrawal Time 0 hours 6 minutes 59 seconds Scope In: 8:54:04 AM Scope Out: 9:04:06 AM [address] [place], [place] Arnaldo Weathers MD GI PROCEDURE ORDERABLES Final Re sult * CERV/VAG CYTO SCREEN PAP W/HPV (04/17/2018 12:13 PM CDT) PAP INTERP See Separate Results 04/19/2018 1:10 PM CDT [facility] [employer] [facility] Genital SWAB OF ENDOCERVIX / Unknown Collection / Unknown 04/17/2018 12:13 PM CDT 04/18/2018 9:04 AM CDT Roxana Rogers MD PATHOLOGY/CYTOLOGY ORD ERABLES Final Result [facility] CLIA# [id number] [address] [place] [address] from Last 3 Months or Most Recently Relevant to Health Maintenance Insurance WEB TPA [employer] SIGNATURE ADMIN Advance Directives For more information, please contact: [phone] * Full Code (Latest Code Status on File) Date Activated Date Inactivated Comments 07/28/2018 7:36 AM 07/28/2018 12:02 PM Care Teams Epic Willow Analyst Relationship Specialty Start Date End Date Apoorva Garcia DO [address] [place] [phone] PCP - General Family Practice 02/14/18
--- OUTSIDE RECORDS SUMMARY | 2025-04-16 12:22 | XMS_ITS | Encounter Summary ---
Author Organization [facility] Address [address] 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
--- OUTSIDE RECORDS SUMMARY | 2025-04-16 12:22 | XMS_ITS | Encounter Summary ---
Author Organization [facility] Address [address] [place] [address] Care Team Providers Care Svp Chief Marketing Officer Name Role Phone Apoorva Garcia DO Primary Care Provider [phone]- [phone] Encounter Details Date Type Department Care Team (Latest Contact Info) Description 06/01/2006 Outpatient [facility] [address] [place] [address] Javier Orlando MD [address] [place] [address] Cervicalgia (Primary Dx) Social History Tobacco Use Types Packs/Day Years Used Date Smoking Tobacco: Never Assessed Comments Unknown Sex and Gender Information Value Date Recorded Sex Assigned at Not on file 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
--- OUTSIDE RECORDS SUMMARY | 2025-04-16 12:23 | XMS_ITS | Encounter Summary ---
Author Organization [facility] Address [address] [place] [address] Care Team Providers Care Department Store General Manager Name Role Phone Apoorva Garcia DO Primary Care Provider [phone]- [phone] Encounter Details Date Type Department Care Team (Late st Contact Info) Description 10/12/2005 Outpatient Historical HIS CANCELLED ADMISSION Javier Orlando MD [address] [address] Social History Tobacco Use Types Packs/Day Years Used Date Smoking Tobacco: Never Assessed Comments Unknown Sex and Gender Information Value Date Recorded Sex Assigned at Not on file Legal Sex Female 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
--- OUTSIDE RECORDS SUMMARY | 2025-04-16 12:23 | XMS_ITS | Encounter Summary ---
Author Organization [facility] Address [address] [place] [address] Care Team Providers Care Racehorse Trainer Name Role Phone Apoorva Garcia DO Primary Care Provider +1- [phone] Encounter Details Date Type Department Care Team (Latest Contact Info) Description 09/14/2005 Outpatient [facility] [address] [place] [address] [place] [address] Javier Orlando MD [address] [place] [address] HEADACHE (Primary Dx) Social History Tobacco Use Types Packs/Day Years Used Date Smoking Tobacco: Never Assessed Comments Unknown Sex and Gender Information Value Date Recorded Sex Assigned at Not on file 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
--- OUTSIDE RECORDS SUMMARY | 2025-04-16 12:23 | XMS_ITS | Encounter Summary ---
Author Organization [facility] Address [address] [place] [address] Care Team Providers Care Furnace Stock Inspector Name Role Phone Apoorva Garcia DO Primary Care Provider +1- [phone] Encounter Details Date Type Department Care Team (Latest Contact Info) Description 08/17/2005 Outpatient [facility] [address] [place] [address] Javier Orlando MD [address] [place] [address] SURGERY FOLLOWUP NEC (Primary Dx) Social History Tobacco Use Types Packs/Day Years Used Date Smoking Tobacco: Never Assessed Comments Unknown Sex and Gender Information Value Date Recorded Sex Assigned at Not on file 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
--- OUTSIDE RECORDS SUMMARY | 2025-04-16 12:23 | XMS_ITS | Encounter Summary ---
Author Organization [facility] Address [address] [place] [address] Care Team Providers Care Utility Bill Complaints Investigator Name Role Phone Apoorva Garcia DO Primary Care Provider +1- [phone] Encounter Details Date Type Department Care Team (Latest Contact Info) Description 09/14/2005 Outpatient Historical [facility] [address] [place] [address] Javier Orlando MD [address] [address] C1-C4 FX-CLOSE/CORD INJ NOS (Primary Dx) Social History Tobacco Use Types Packs/Day Years Used Date Smoking Tobacco: Never Assessed Comments Unknown Sex and Gender Information Value Date Recorded Sex Assigned at Not on file Legal Sex Female 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
--- OUTSIDE RECORDS SUMMARY | 2025-04-16 12:23 | XMS_ITS | Patient Health Record ---
Author Organization [facility] Address [address] [place] [address] Care Team Providers Care Carpenter Railcar Name Role Phone Ade Marx Primary Care Provider Linda Lyles [phone] Allergies No Known Allergies Reason For Referral No Information Medications Medication SIG (Take, Route, Frequency, Duration) Notes Start Date End Date Status Flonase Allergy Relief 50 MCG/ACT 2 spray in each nostril Nasally Once a day Active Pantoprazole Sodium 40 MG 1 tablet Orall y Once a day Active Flovent HFA 110 MCG/ACT 1 puff Inhalatio n Twice a day for 30 days Not-Taking Azelastine HCl 137 MCG/SPRAY 1 puff in each nostril Nasally Twice a day for 30 day(s) 02/10/2022 Active Singulair 10 MG 1 tablet Orally Once a day for 90 days 01/27/2021 Active Albuterol Sulfate HFA 108 MCG/ACT 1 puff as needed Inhalation every 4 hrs Active Topamax 50 MG 1 tablet Orally Once a day for 30 day(s) Active Montelukast Sodium 10 MG Take 1 tablet b y mouth once daily for 90 Active Ibuprofen 800 MG 1 tablet with food o r milk as needed Orally prn back and neck pain Active Terbinafine HCl 250 MG 1 tablet Orally O nce a day Not-Taking Hyoscyamine Sulfate 0.125 MG 1 tablet on the tongue and allow to dissolve as needed Orally every 4 hrs Active Benadryl Allergy 25 MG 1 tablet Orally a t bedtine as needed Not-Taking HYDROcodone-Acetaminophen 5-325 MG 1 tablet as needed Orally every 8 hrs Active Albuterol Sulfate HFA 108 (90 Base) MCG/ACT 2 puff as needed Inhalation every 4 hrs for 30 days 04/28/2022 Active tiZANidine HCl 4 MG 1 tablet as needed Orally Three times a day Not-Taking ZyrTEC Allergy 10 MG 1 tablet Orally Onc e a day Active Lunesta 2 MG 1 tablet immediately before bedtime Orally Once a day Active Melatonin 1 MG 1 capsule at bedtime as needed Orally prn Not-Taking Immunizations Vaccine Route Administration Date Status Comme nts COVID-19 Vaccine (Intellisense) Dose #1 Unknown 05/29/2021 Ad ministered COVID-19 Vaccine (Intellisense) Dose #2 Unknown 06/19/2021 Ad ministered Influenza, seasonal, injecta ble (split), for 3 yrs and up Unknown 07/24/2019 Administered Influenza, seasonal, injecta ble, preservative free, 3 yrs and above Unknown 07/30/2020 Administered Social History Tobacco Use: Social History Observation Description Date Details (start date - stop date) Never Smoker NA - NA xTobacco Use/Smoking Question Answer Notes Are you a nonsmoker Alcohol Screen (Audit-C) Question Answer Notes Did you have a drink contain ing alcohol in the past year? Yes How often did you have a dri nk containing alcohol in the past year? Monthly or less (1 point) How many drinks did you have on a typical day when you were drinking in the past year? 1 or 2 drinks (0 point) How often did you have 6 or more drinks on one occasion in the past year? Never (0 point) Points 1 Interpretation Negative PHQ-9 Question Answer Notes Little interest or pleasure in doing things Not at all Feeling down, depressed, or hopeless Not at all Trouble falling or staying asleep, or sleeping t oo much Several days Feeling tired or having little energy Not at all Poor appetite or overeating Not at all Feeling bad about yourself, or that you are a failure, or have let yourself or your family down Not at all Trouble concentrating on thi ngs, such as reading the newspaper or watching television Not at all Moving or speaking so slowly that other people could have noticed. Or the opposite ? being so fidgety or restless that you have been moving around a lot more than usual Not at all Thoughts that you would be b za off , or of hurting yourself in some way Not at all Total Score 1 Interpretation Minimal Depression Problems Problem Type SNOMED Code ICD Code Onset Dates Problem Status W/U Status Risk Notes Problem Hypersomnia (85540906) Hypersomnia (G47.10) Active confirmed Problem 545513630 Gastroesophageal reflux disease, esophagitis presence not specified (K21.9) Active confirmed Problem Mild intermittent asthma (941159657) Mild intermittent asthma in adult without complication (J45.20) Active confirmed Problem Uncomplicated mild persistent asthma (801552635) Mild persistent asthma without complication (J45.30) Active confirmed Problem Seasonal allergy (660771495) Seasonal allergies (J30.2) Active confirmed Plan Of Treatment Pending Test Test Name Order Date Sleep study > 3 [id number] 01/27/2021 Sleep Study with [id number] 01/27/2021 Insurance Providers Payer Name Payer Address Payer Phone Subscriber Number Group Number Insured Name Patient Relationship to Insured Coverage Start Date Coverage End Date [place] [address] [place] [address] [id number] ANGEL Marcano Self - patient is the insured Medical (General) History Medical History History ICD Code Problem:Irregular periods Resolved Problem:Kidney stone, Problem:Migraine (disorder) , Status :: Active Problem:Mitral valve prolapse (disorder) , Status :: Active Hx of pneumonia Hiatal Hernia Degenerative disc disease asthma Bronchitis anxiety GERD sleep apnea Surgical History Surgery Date(Month/Year) cervical discectomy c5-c6 and 6-7 cholecystectomy 08/2019 left middle finger tendon repair Dilation and Curettage denies recent Hospitalization History Reason Date(Month/Year) denies recent pneumonia/lung infection 2015 See above
--- OUTSIDE RECORDS SUMMARY | 2025-04-16 12:23 | XMS_ITS | Encounter Summary ---
Author Organization [facility] Address [address] [place] [address] Care Team Providers Care Safety Engineer Name Role Phone Apoorva Garcia DO Primary Care Provider [phone] Encounter Details Date Type Department Care Team (Latest Contact Info) Description 08/17/2005 Outpatient Historical [facility] [address] 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 Gender Identity Not on file Sexual Orientation Not on file documented as of this encounter Plan of Treatment Not on file documented as of this encounter Visit Diagnoses Diagnosis Closed fracture of fifth cervical vertebra without mention of spinal cord injury (CMS/HCC)- Primary Closed fracture of fifth cervical vertebra without mention of spinal cord injury Closed fracture of sixth cervical vertebra without mention of spinal cord injury (CMS/HCC) Closed fracture of sixth cervical vertebra without mention of spinal cord injury documented in this encounter Care Teams Safety Engineer Relationship Specialty Start Date End Date Apoorva Garcia DO [address] [place] [id number] PCP - General Family Practice 02/14/18 documented as of this encounter
--- OUTSIDE RECORDS SUMMARY | 2025-04-16 12:23 | XMS_ITS | Encounter Summary ---
Author Organization [facility] Address [address] [place] [address] Care Team Providers Care Statement Clerks Manager Name Role Phone Apoorva Garcia DO Primary Care Provider [phone] Encounter Details Date Type Department Care Team (Late st Contact Info) Description 08/06/2005 Inpatient Historical [facility] Javier Orlando MD [address] [place] [address] CERV SPONDYL W MYELOPATH (Primary Dx) Social History Tobacco Use Types Packs/Day Years Used Date Smoking Tobacco: Never Assessed Comments Unknown Sex and Gender Information Value Date Recorded Sex Assigned at Not on file Legal Sex Female 5:10 AM VALVE INSPECTOR Gender Identity Not on file Sexual Orientation Not on file documented as of this encounter Plan of Treatment Not on file documented as of this encounter Procedures Procedure Name Priority Date/Time Associated Diagnosis Comments POC GLUCOSE Routine 08/06/2005 2:56 PM CDT documented in this encounter Results * (ABNORMAL) POC GLUCOSE (08/06/2005 2:56 PM CDT) GLUCOSE POC 107(H) 60 - 100 mg/dL INTERFACE SYSTEM 08/06/2005 2:56 PM CDT us Javier Orlando MD POINT OF CARE TESTING Final Re sult INTERFACE SYSTEM Refer to clinic/hospital department documented in this encounter Visit Diagnoses Diagnosis Cervical spondylosis with myelopathy- Primary documented in this encounter Care Teams Statement Clerks Manager Relationship Specialty Start Date End Date Apoorva Garcia DO [address] [place] [address] PCP - General Family Practice 02/14/18 documented as of this encounter
--- NOTE | 2025-04-16 12:34 | CT_ITS ---
WS: [id number] CT HEAD NONCONTRAST HISTORY: dizziness TECHNIQUE: Contiguous axial imaging performed through the brain. Bone and soft tissue windows. Sagittal and coronal reformats reviewed. All CT scans at [facility] use at least one of these dose optimization techniques: automated exposure control; mA and/or kV adjustment per patient size (includes targeted exams where dose is matched to clinical indication); or iterative reconstruction. DLP: 1015.24 mGy.cm COMPARISON: None available. No acute intracranial hemorrhage, midline shift or mass effect. No significant cerebral or cerebellar atrophy. Small lacunar infarcts versus perivascular spaces inferior LEFT basal ganglia. Favor perivascular spaces. No large territory infarct. Ventricles: Normal size with no hydrocephalus. No inferior displacement of the cerebellar tonsils. Paranasal sinuses: As visualized are clear. Mastoid air cells: Well pneumatized. Calvarium and scalp: Skull is intact with no soft tissue edema or swelling. CT/CT head wo con* [id number] IMPRESSION: 1. No acute intracranial hemorrhage or edema. 2. Normal ventricles. 3. Perivascular spaces LEFT basal ganglia.
--- NOTE | 2025-04-16 12:34 | XR_ITS ---
WS: [id number] Exam: XR chest 1V portable [id number] Date/Time of Exam: 04/16/2025 12:54 PM Reason For Exam: dizziness Comparison 11/04/2024. Lungs are clear and fully inflated. Normal cardiomediastinal silhouette. No pleural effusions. Fusion hardware in the lower C-spine. XR/XR chest 1V portable [id number] IMPRESSION: 1. Negative chest.
--- NOTE | 2025-04-16 12:36 | ECG_ITS ---
[facility] Test Date: 2025-04-16 Pat Name: Kailee Marcano Department: Room: Gender: Female Hardware Trainer: : 1970 Requested By: Cleo Alvarez Order Number: [id number] Preston MD: Hollis Mcelroy M.D. Measurements Intervals [place] Rate: 82 P: 44 OR: 181 QRS: 38 QRSD: 84 T: 54 QT: 395 QTc: 462 Interpretive Statements SINUS RHYTHM Compared to ECG 11/04/2024 15:58:08 Sinus tachycardia no longer present T-wave abnormality no longer present Electronically Signed On 04-16-2025 17:10:31 CDT by Hollis Mcelroy M.D. [email or web address]
--- NOTE | 2025-04-16 12:38 | W.ED.WEAKNES ---
HPI - Weakness General: Chief complaint: Weakness Stated complaint: trouble walking Time Seen by Provider: 04/16/25 12:30 Source: patient Mode of arrival: ambulatory Limitations: no limitations History of Present Illness: 54-year-old female states that she woke up yesterday morning with severe dizziness. States she has had ongoing dizziness since then her last known normal was the night before over 24 hours. States that her vertigo and dizziness is much worse when she stands or tries to ambulate states has been a hard time ambulating. No history of vertigo in the past denies any other symptoms at this time Associated symptoms: Denies chest pain, chills, fever(s), headache(s), nausea or vomiting Review of Systems Const: Denies: fever(s), chills, body aches or change in appetite ENMT: Denies: throat pain or dental pain Card: Denies: chest pain Resp: Denies: dyspnea GI: Denies: abdominal pain, nausea, vomiting or diarrhea Musc: Denies: neck pain or back pain Skin/Breast: Denies: rash Neuro: Reports: dizziness and vertigo; Denies: headache(s) PFSH ED PFSH: Medical History COVID-19 Asthma Social History Smoking and tobacco/nicotine status: unknown if used tobacco/nicotine Alcohol intake: current Alcohol intake frequency: few times a month Substance/Drug Use: never Lives independently: No Household members: spouse Housing: House Marital status: Number of children: 3 Number of grandchildren: 3 Highest education level completed: Associate Degree: Academic Program service: No Current occupational status: employed Current occupation: [employer] Current occupational exposures/hazards: Yes Pets and animals: No Sexually active: Yes Special iker needs: No Physical Exam Const: COMMON NORMALS: patient oriented x3 HENMT: COMMON NORMALS: normocephalic and atraumatic HEAD & SCALP: normocephalic and atraumatic Eye: COMMON NORMALS: Equal, round and reactive pupils present and EOMs intact bilaterally PUPIL: Yes Equal, round and reactive pupils present Neck/C-Spine: COMMON NORMALS: full ROM and supple Chest: COMMONS NORMALS: normal inspection of the chest and normal palpation of entire chest wall Resp: COMMON NORMALS: normal respiratory effort, No retractions, No use of accessory muscles and clear to auscultation bilaterally AUSCULTATION: clear to auscultation bilaterally Cardio: COMMON NORMALS: regular rate, regular rhythm and No murmurs present (Cardio) RATE: regular rate RHYTHM: regular rhythm GI: COMMON NORMALS: Normal to inspection, nondistended, normoactive bowel sounds present, Soft to palpation, non-tender and no masses PALPATION: Yes Soft to palpation Extremity: COMMON NORMALS: normal to inspection and full ROM Neuro: COMMON NORMALS: patient oriented x3, moves all extremities and no focal motor deficits CRANIAL NERVES: Yes CN normal except as noted SPEECH: speech normal MOTOR EXAM: 5/5 motor strength present throughout Psych: COMMON NORMALS: mental status grossly normal, Normal thought process present and cooperative THOUGHT PROCESS: Normal thought process present Skin: COMMON NORMALS: no rashes or lesions noted and no wounds GENERAL SKIN EXAM: no rashes or lesions noted Course Vital Signs: Vital signs: Vital Signs Temperature 98.1 F 04/16/25 12:14 Pulse Rate 83 04/16/25 14:00 Respiratory Rate 18 04/16/25 12:14 Blood Pressure 132/88 04/16/25 14:00 Pulse Oximetry 100 04/16/25 14:00 Oxygen Delivery Me thod Room Air 04/16/25 14:00 MDM - Weakness Medical Decision Making Patient presents here with vertigo is likely peripheral vertigo. Her symptoms have improved greatly meclizine I did ambulate the turner after not ataxic states she feels much improved. She states her symptoms have been much worse with sudden movements per day but improved with meclizine she has no signs of a posterior stroke here we will start her on meclizine Zofran informed if her symptoms worsen she is to return she understands agrees to plan. Medical Records I reviewed the patient's medical records. Lab Data I reviewed the patient's lab results. 04/16/25 13:29 04/16/25 13:29 Radiology Impressions Chest X-Ray 04/16/25 12:34 IMPRESSION: 1. Negative chest. Head CT 04/16/25 12:34 IMPRESSION: 1. No acute intracranial hemorrhage or edema. 2. Normal ventricles. 3. Perivascular spaces LEFT basal ganglia. Laboratory Results WBC 8.19 10^3/uL (3.29-11.43) 04/16/25 13:29 RBC 4.94 10^6/uL (3.85-5.65) 04/16/25 13:29 Hgb 14.80 g/dL (11.27-16.99) 04/16/25 13:29 Hct 44.4 % (36-47) 04/16/25 13:29 MCV 89.9 fl (85-98) 04/16/25 13:29 MCH 30.0 pg (27-33) 04/16/25 13:29 MCHC 33.3 g/dL (30-55) 04/16/25 13:29 RDW 13.6 % (12.1-15.1) 04/16/25 13:29 Plt Count 273 10^3/cmm (157-399) 04/16/25 13:29 MPV 10.4 fL (7.4-10.4) 04/16/25 13:29 Neut % (Auto) 59.9 % 04/16/25 13:29 Lymph % (Auto) 30.2 % 04/16/25 13:29 [place] % (Auto) 5.3 % 04/16/25 13:29 Eos % (Auto) 2.9 % 04/16/25 13:29 Baso % (Auto) 1.3 % 04/16/25 13:29 Neut # (Auto) 4.91 10^3/uL (1.8-7.7) 04/16/25 13:29 Lymph # (Auto) 2.5 10^3/uL (0.8-4.8) 04/16/25 13:29 [place] # (Auto) 0.4 10^3/uL (0.2-0.9) 04/16/25 13:29 Eos # (Auto) 0.2 10^3/uL (0.0-0.8) 04/16/25 13:29 Baso # (Auto) 0.1 10^3/uL (0.0-0.1) 04/16/25 13:29 Nucleated RBC % (auto) 0 % 04/16/25 13:29 Nucleated RBCs # 0.0 /100WBC 04/16/25 13:29 PT 13.00 SECONDS (12.1-14.9) 04/16/25 13:29 INR 0.92 (0.8-1.2) 04/16/25 13:29 Sodium 141 mmol/L (136-145) 04/16/25 13:29 Potassium 4.1 mmol/L (3.5-5.1) 04/16/25 13:29 Chloride 107 mmol/L (98-107) 04/16/25 13:29 Carbon Dioxide 22 mmol/L (22-29) 04/16/25 13:29 Anion Gap 16.1 (5-19) 04/16/25 13:29 BUN 14 mg/dL (6-20) 04/16/25 13:29 Creatinine 1.0 mg/dL (0.5-0.9) H 04/16/25 13:29 GFR Calculation 57.8 mL/min (90-130) L 04/16/25 13:29 Glucose 98 mg/dL (65-115) 04/16/25 13:29 POC Glucose 92 mg/dL (70-110) 04/16/25 13:45 Calculated Osmolality 292 mOsm/kg (285-295) 04/16/25 13:29 Calcium 9.3 mg/dL (8.5-10.5) 04/16/25 13:29 Total Bilirubin 0.2 mg/dL (0.15-1.2) 04/16/25 13:29 AST 22 U/L (0-32) 04/16/25 13:29 ALT 25 U/L (0-33) 04/16/25 13:29 Alkaline Phosphatase 143 U/L (35-105) H 04/16/25 13:29 Total Protein 7.3 g/dL (6.6-8.7) 04/16/25 13:29 Albumin 4.2 g/dL (3.5-5.2) 04/16/25 13:29 Globulin 3.1 g/dL (1.3-4.6) 04/16/25 13:29 All radiology interpretation(s) finalized by discharge EKG Data EKG 1: I personally reviewed and interpreted this EKG as follows: EKG interpretation date: 04/16/25 EKG interpretation time: 13:42 Interpretation: nsrhr [address] elevation qrs 84 qtc 433 Discharge Plan Discharge Patient Disposition: Home Clinical Impression: Vertigo Condition: Stable Prescriptions: New meclizine 50 mg tablet 50 mg PO BID PRN (Reason: dizziness) Qty: 20 0RF ondansetron 4 mg tablet,disintegrating 4 mg PO Q6H PRN (Reason: nausea and vomiting) Qty: 14 0RF No Action fluticasone propionate 50 mcg/actuation spray,suspension 1 spray INTRANASAL DAILY Rx Instructions: administer into each nostril topiramate [Topamax] 50 mg tablet 50 mg PO DAILY diphenhydramine HCl [Benadryl] 25 mg capsule 25 mg PO TID PRN ibuprofen [IBU] 800 mg tablet 800 mg PO Q6H albuterol sulfate 90 mcg/actuation aerosol powdr breath activated 2 inh INHALATION Q6H PRN cyclobenzaprine 10 mg tablet 10 mg PO TID PRN (Reason: muscle spasm) Qty: 20 0RF levocetirizine 5 mg tablet 5 mg PO DAILY duloxetine 20 mg capsule,delayed release(DR/EC) 20 mg PO BID eszopiclone [Lunesta] 1 mg tablet PO amoxicillin-pot clavulanate 875-125 mg tablet 1 tab PO BID Qty: 14 0RF Discharge Orders: Discharge ED (Routine); Ordered 04/16/25 Ordered By: Cleo Alvarez Referrals: Ade Lin FNP [Primary Care Provider, Nurse Practitioner] - 4-7 days Discharge Diet: Advance as tolerated Discharge Activity: Resume usual activity Patient Instructions: Vertigo (ED), Benign Paroxysmal Positional Vertigo (ED) Print Language: Slovenian Coding Level of Care Code ED Per Diem Nurse for Chg Fwd Related Data Home Medications ?Medication ?Instructions ?Recorded ?Confirmed albuterol sulfate 90 mcg/actuation 2 inh inhalation Q6H PRN 07/19/20 07/02/24 breath activated powder inhaler diphenhydramine HCl 25 mg capsule 25 mg PO TID PRN 07/19/20 07/02/24 (Benadryl) fluticasone propionate 50 1 spray intranasal DAILY 07/19/20 07/02/24 mcg/actuation nasal spray,suspension ibuprofen 800 mg tablet (IBU) 800 mg PO Q6H 07/19/20 07/02/24 topiramate 50 mg tablet (Topamax) 50 mg PO DAILY 07/19/20 07/02/24 duloxetine 20 mg capsule,delayed 20 mg PO BID 05/02/22 07/02/24 release eszopiclone 1 mg tablet (Lunesta) mg PO 05/02/22 07/02/24 levocetirizine 5 mg tablet 5 mg PO DAILY 10/18/23 07/02/24 Previous Rx's ?Medication ?Instructions ?Recorded cyclobenzaprine 10 mg tablet 10 mg PO TID PRN muscle spasm #20 07/27/21 tabs amoxicillin 875 mg-potassium 1 tab PO BID #14 tabs 11/04/24 clavulanate 125 mg tablet meclizine 50 mg tablet 50 mg PO BID PRN dizziness #20 tabs 04/16/25 ondansetron 4 mg disintegrating 4 mg PO Q6H PRN nausea and 04/16/25 tablet vomiting #14 tabs Allergies Allergy/AdvReac Type Severity Reaction Status Date / Time No Known Allergies Allergy Verified 11/04/24 15:55 NIH stroke score NIHSS Level Of Consciousness - 1a: 0 Level Of Consciousness Questions - 1b: Both Correct Level Of Consciousness Commands - 1c: Both Correct Best Gaze - 2: Normal Visual Mccarthy - 3: No Visual Loss Facial Palsy - 4: Normal Motor Arm Right - 5: No Drift Motor Arm Left - 5: No Drift Motor Leg Right - 6: No Drift Motor Leg Left - 6: No Drift Limb Ataxia - 7: Absent Sensory - 8: Normal Best Language - 9: No Aphasia Dysarthia - 10: Normal Extinction And Inattention - 11: 0 Score Total Score: 0
[2025-04-16] MEDS: meclizine 25 mg tablet 50 MG PO (13:06)
[2025-04-16] MEDS: ondansetron 2 mg/ML SDV 2 mL 4 MG IVP (13:08)
[2025-04-16 13:15] VITALS: BP 145/100; PULSE 87; O2SAT 98
[2025-04-16 13:37] LABS: Basophils # 0.1 10^3/uL (0.0-0.1); Basophils % 1.3 %; Eosinophils # 0.2 10^3/uL (0.0-0.8); Eosinophils % 2.9 %; Hematocrit 44.4 % (36-47); Lymphocytes # 2.5 10^3/uL (0.8-4.8); Lymphocytes % 30.2 %; Mean Corpuscular HGB Conc 33.3 g/dL (30-55); Mean Corpuscular Volume 89.9 fl (85-98); Mean Platelet Volume 10.4 fL (7.4-10.4); Monocytes # 0.4 10^3/uL (0.2-0.9); Monocytes % 5.3 %; Neutrophils # 4.91 10^3/uL (1.8-7.7); Neutrophils % 59.9 %; Nucleated Red Blood Cells % 0 %; Platelet Count 273 10^3/cmm (157-399); Red Blood Count 4.94 10^6/uL (3.85-5.65); Red Cell Distribution Width 13.6 % (12.1-15.1); White Blood Count 8.19 10^3/uL (3.29-11.43)
[2025-04-16 13:48] LABS: Glucose Point of Care 92 mg/dL (70-110)
[2025-04-16 13:50] LABS: INR 0.92 (0.8-1.2)
[2025-04-16 13:53] LABS: Alanine Aminotransferase 25 U/L (0-33); Albumin Level 4.2 g/dL (3.5-5.2); Alkaline Phosphatase 143 U/L (35-105); Anion Gap 16.1 (5-19); Aspartate Amino Transferase 22 U/L (0-32); Blood Urea Nitrogen 14 mg/dL (6-20); Calcium 9.3 mg/dL (8.5-10.5); Carbon Dioxide 22 mmol/L (22-29); Chloride 107 mmol/L (98-107); Creatinine Clr Calc Pharmacy 68.3213; Globulin 3.1 g/dL (1.3-4.6); Glomerular Filtration Rate 57.8 mL/min (90-130); Glucose 98 mg/dL (65-115); Osmolality Calculated 292 mOsm/kg (285-295); Potassium 4.1 mmol/L (3.5-5.1); Sodium 141 mmol/L (136-145); Total Bilirubin 0.2 mg/dL (0.15-1.2); Total Protein 7.3 g/dL (6.6-8.7)
[2025-04-16 14:00] VITALS: BP 132/88; PULSE 83; O2SAT 100
[2025-04-16 14:32] VITALS: BP 132/68; PULSE 83; O2SAT 96
== END 2025-04-16 14:33 | disposition home or self-care (01) ==
PROVIDERS: Emergency Provider Emergency Medicine; PCP Registered Nurse
DX: R42 Dizziness and giddiness (principal)
CPT/HCPCS: 36415; 36416; 70450; 71045; 80053; 82962; 85025; 85610; 93005; 96374; 99285; J2405; J8597